=== PATIENT | female | born 1965 | race Two or more races ===

== ENCOUNTER 2020-10-09 14:39 | Outpatient (REF) | payer OTHER, SELFPAY ==
[2020-10-09 15:24] LABS: COVID-19 Test Negative (Negative)
== END 2020-10-09 14:40 | disposition home or self-care (01) ==
LOC: HO.EMPCOV 14:39
PROVIDERS: Visit Provider Internal Medicine
DX: Z20.828 Contact with and (suspected) exposure to other viral communicable diseases (principal)
CPT/HCPCS: 87635; C9803

== ENCOUNTER 2020-10-11 07:15 | Outpatient (REF) | payer OTHER, SELFPAY ==
[2020-10-11 07:40] LABS: COVID-19 Test Positive (Negative)
[2020-10-11 11:01] LABS: IDNOW Serial# 9DD0AD1C
== END 2020-10-11 07:16 | disposition home or self-care (01) ==
LOC: HO.EMPCOV 07:15
PROVIDERS: Visit Provider Internal Medicine
DX: Z20.828 Contact with and (suspected) exposure to other viral communicable diseases (principal)
CPT/HCPCS: 87635

== ENCOUNTER 2020-10-23 16:24 | Emergency (ER) | payer OTHER, SELFPAY ==
[2020-10-23 16:29] VITALS: BP 137/72; PULSE 83; RESP 18; TEMP 37.4; O2SAT 99; BMI 39.7
--- NOTE | 2020-10-23 16:49 | XR_ITS ---
EXAMINATION: XR CHEST CLINICAL INFORMATION: Weakness COMPARISON: 02/05/2020 TECHNIQUE: Frontal view of the chest was obtained. FINDINGS: Lung volumes are further decreased from the prior study. Again seen are diffuse coarse interstitial opacities. There are some areas that are increasingly confluent although its unclear if this is simply due to to the decreased lung volumes. The dens is most notable in the right upper lobe. No pleural effusion or pneumothorax. Normal heart size. No acute osseous abnormality. XR/XR chest 1V IMPRESSION: Lung volumes are further decreased from the prior study. Again seen are diffuse coarse interstitial opacities with some increasingly confluent areas of opacity particularly in the right upper lobe. Developing infection is possible.
--- NOTE | 2020-10-23 16:49 | ECG_ITS ---
Test Reason : NAUSEA VOMITING Blood Pressure : / mmHG Vent. Rate : 065 BPM Atrial Rate : 065 BPM P-R Int : 158 ms QRS Dur : 080 ms QT Int : 432 ms P-R-T Axes : 043 001 018 degrees QTc Int : 449 ms Normal sinus rhythm Normal ECG No previous ECGs available Referred By: Ember Coy Electronically Signed By:JODI HANCOCK
--- NOTE | 2020-10-23 16:54 | ED.NAVMDI ---
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 MD elicited complaint: nausea, vomiting and diarrhea Pertinent past history: other (+COVID) Onset (ago): week(s) (10 days) Description of vomiting: watery Description of diarrhea: watery Associated nausea: Yes Associated abdominal pain: No Location of pain: none Severity: severe Exacerbating factors: none Relieving factors: none Context: other (+ COVID ) Associated symptoms: loss of appetite, malaise and nausea/vomiting Related Data Previous Rx's Medication Instructions Recorded hydrocodone-homatropine 5 ml PO Q6H PRN #60 ml 10/23/20 metoclopramide HCl [Reglan] 10 mg PO Q6H PRN #30 tab 10/23/20 promethazine 25 mg LA Q6H PRN #12 ea 10/23/20 Allergies Allergy/AdvReac Type Severity Reaction Status Date / Time No Known Allergies Allergy Verified 10/23/20 16:37 Review of Systems Review of Systems: Constitutional : pos Weight loss, No Fever, No Chills ENT/Mouth : No sore throat, No Rhinorrhea Eyes: No Swelling, No Redness Cardiovascular : No Chest Pain, No SOB, NoEdema Respiratory : No Cough, No Sputum, No Wheezing Gastrointestinal : Positive Nausea, Positive Vomiting, positive Diarrhea, no abdominal Pain, No Hematochezia, No Melena Genitourinary : No Dysuria, No Urinary Frequency, No Hematuria, No Urgency Musculoskeletal : No joint pain, No Myalgias, No Joint Swelling Skin : No Skin Lesions, No rash Neuro : pos Weakness, No Numbness, No Dizziness, No Headache Psych : No Anxiety/Panic, No Depression Heme/Lymph: No Bruising, No Lymphadenopathy Endocrine : No Polyuria, No Polydipsia All other systems reviewed and are negative. Gastrointestinal: Gastrointestinal: Reports nausea PMFSH Past Medical History Attestation statement: The following information was validated with the patient. Medical History Herpes Surgical History Previous back surgery Social History Social History (Updated 10/23/20 @ 16:58 by Ember Coy DO) Alcohol intake: never Smoking Status: Never smoker Use of substances other than those prescribed or required for medical reasons: No Advance Directives: No Advance Directives Information Provided: No Physical Exam Vital Signs: Vital Signs: Last Vital Signs Temp 98.8 F 10/23/20 17:54 Pulse 68 10/23/20 17:54 Resp 14 10/23/20 17:54 BP 119/59 L 10/23/20 17:54 Pulse Ox 100 10/23/20 17:54 Body Mass Index 39.7 Appearance: Alert. Oriented X3. No acute distress. Eyes: Pupils equal, round and reactive to light. ENT: Pharynx dry MM Neck: Normal inspection. Neck supple. CVS: Normal heart rate and rhythm. Pulses normal. Respiratory: No respiratory distress. Breath sounds normal. Abdomen: Soft and non-tender. Skin: Skin warm and dry. Normal skin color. Normal skin turgor. Extremities: No lower extremity edema. No calf ttp Neuro: Oriented X 3. No motor deficit. No sensory deficit. Diffuse weakness Course Course Course Narrative: patient feels better and wants to go home, able to keep down liquids MDM - Nausea/Vomiting/Diarrhea MDM Narrative Medical decision making narrative: 55 yo female with dx of COVID on 10/11 here with n/v/d feels weak and dehydrated will need labs, CXR, COVID labs, EKG, IVF 1L over 2 hours, nausea medications, dispo per results and findings will need PO challenge Lab Data Result diagrams: 10/23/20 17:10 10/23/20 17:10 Labs: Lab Results 10/23/20 10/23/20 10/23/20 Range/Units 17:10 17:10 17:10 WBC 6.8 (4.8-10.8) X10*3/uL RBC 4.33 (4.20-5.50) X10*6/uL Hgb 13.2 (12.0-16.0) g/dl Hct 39.6 (37-47) % MCV 91.5 (80-98) fL MCH 30.5 (27.0-33.0) pg MCHC 33.3 (31.0-35.0) g/dl RDW 12.2 (11.0-16.0) % Plt Count 299 (160-400) X10*3/uL MPV 9.0 L (9.4-12.3) fL Immature Gran % (Auto) 0.3 (0.0-0.4) % Neut % (Auto) 60.4 (45-73) % Lymph % (Auto) 27.7 (20-40) % [place] % (Auto) 10.3 (2-11) % Eos % (Auto) 1.2 (0-4) % Baso % (Auto) 0.1 (0-2) % Lymph # (Auto) 1.9 (1.2-4.9) X10*3/uL [place] # (Auto) 0.7 (0.1-1.2) X10*3/uL Eos # (Auto) 0.1 (0.0-0.4) X10*3/uL Baso # (Auto) 0.0 (0.0-0.2) X10*3/uL Abs Immat Gran (auto) 0.02 (0.00-0.03) X10*3/uL Absolute Neuts (auto) 4.1 (2.0-8.3) X10*3/uL Absolute Nucleated RBC 0.000 (0.0-0.012) X10*3/uL Nucleated RBC % (auto) 0.0 (0.0-0.2) /100WBC VBG pH (7.32-7.43) VBG pCO2 mmhg VBG pO2 mmhg VBG HCO3 mmol/L VBG O2 Saturation % VBG Base Excess mmol/L Sodium 140 (135-145) mmol/L Potassium 3.6 (3.3-5.1) mmol/l Chloride 105 (96-108) mmol/L Carbon Dioxide 27 (22-29) mmol/L Anion Gap 12 (12-20) BUN 10 (9-16) mg/dL Creatinine 0.73 (0.5-1.4) mg/dL Estim Creat Clear Calc 131.0 Estimated GFR > 60 Random Glucose 123 H (60-115) mg/dL Lactic Acid 0.9 (0.5-2.0) mmol/L Calcium 8.2 L (8.4-10.2) mg/dL Magnesium 2.0 (1.6-2.6) mg/dL Ferritin 242 (10-250) ng/mL Total Bilirubin 0.5 (0.0-1.0) mg/dL Direct Bilirubin 0.2 (0.0-0.5) mg/dL AST 21 (5-31) U/L ALT 27 (0-31) U/L Alkaline Phosphatase 81 (39-117) U/L Lactate Dehydrogenase 255 H (122-220) U/L Total Creatine Kinase 82 (26-140) U/L Total Protein 6.4 L (6.5-8.0) g/dL Albumin 3.8 (3.5-5.0) g/dL 10/23/20 Range/Units 17:29 WBC (4.8-10.8) X10*3/uL RBC (4.20-5.50) X10*6/uL Hgb (12.0-16.0) g/dl Hct (37-47) % MCV (80-98) fL MCH (27.0-33.0) pg MCHC (31.0-35.0) g/dl RDW (11.0-16.0) % Plt Count (160-400) X10*3/uL MPV (9.4-12.3) fL Immature Gran % (Auto) (0.0-0.4) % Neut % (Auto) (45-73) % Lymph % (Auto) (20-40) % [place] % (Auto) (2-11) % Eos % (Auto) (0-4) % Baso % (Auto) (0-2) % Lymph # (Auto) (1.2-4.9) X10*3/uL [place] # (Auto) (0.1-1.2) X10*3/uL Eos # (Auto) (0.0-0.4) X10*3/uL Baso # (Auto) (0.0-0.2) X10*3/uL Abs Immat Gran (auto) (0.00-0.03) X10*3/uL Absolute Neuts (auto) (2.0-8.3) X10*3/uL Absolute Nucleated RBC (0.0-0.012) X10*3/uL Nucleated RBC % (auto) (0.0-0.2) /100WBC VBG pH 7.36 (7.32-7.43) VBG pCO2 48 mmhg VBG pO2 34 mmhg VBG HCO3 26 mmol/L VBG O2 Saturation 67.8 % VBG Base Excess 0.0 mmol/L Sodium (135-145) mmol/L Potassium (3.3-5.1) mmol/l Chloride (96-108) mmol/L Carbon Dioxide (22-29) mmol/L Anion Gap (12-20) BUN (9-16) mg/dL Creatinine (0.5-1.4) mg/dL Estim Creat Clear Calc Estimated GFR Random Glucose (60-115) mg/dL Lactic Acid (0.5-2.0) mmol/L Calcium (8.4-10.2) mg/dL Magnesium (1.6-2.6) mg/dL Ferritin (10-250) ng/mL Total Bilirubin (0.0-1.0) mg/dL Direct Bilirubin (0.0-0.5) mg/dL AST (5-31) U/L ALT (0-31) U/L Alkaline Phosphatase (39-117) U/L Lactate Dehydrogenase (122-220) U/L Total Creatine Kinase (26-140) U/L Total Protein (6.5-8.0) g/dL Albumin (3.5-5.0) g/dL ECG Data Attestation: I personally reviewed and interpreted this ECG as follows: ECG interpretation date: 10/23/20 ECG interpretation time: 18:03 Interpretation: Rate: 65 Rhythm: NSR [place]: normal Normal P waves. Normal TYLER. Normal QRS complex. ST T wave : no HIEN, normal qTC: normal prior studies: no acute ischemia The study has been interpreted contemporaneously by me. . Discharge Plan Discharge Clinical Impression: Pneumonia due to 2019-nCoV Vomiting Qualifiers: Vomiting type: unspecified Vomiting Intractability: non-intractable Nausea presence: with nausea Qualified Code(s): R11.2 - Nausea with vomiting, unspecified Patient Disposition: Home, Self-Care Instructions: Acute Nausea and Vomiting (ED), COVID-19 (Coronavirus Disease 2019) (ED) Additional Instructions: return to ED for any worsening symptoms or concerns Prescriptions: New metoclopramide HCl [Reglan] 10 mg tablet 10 mg PO Q6H PRN (Reason: nausea and vomiting) Qty: 30 RF: 0 promethazine 25 mg suppository 25 mg LA Q6H PRN (Reason: nausea and vomiting) Qty: 12 RF: 0 hydrocodone-homatropine 5-1.5 mg/5 mL (5 mL) syrup 5 ml PO Q6H PRN (Reason: cough) Qty: 60 RF: 0 Stand Alone Forms: Work/School Release
[2020-10-23 17:19] LABS: Basophils Percent Auto 0.1 % (0-2); Eosinophils Absolute Auto 0.1 X10*3/uL (0.0-0.4); Eosinophils Percent Auto 1.2 % (0-4); Hematocrit 39.6 % (37-47); Hemoglobin 13.2 g/dl (12.0-16.0); Imm Gran Abs Auto 0.02 X10*3/uL (0.00-0.03); Imm Gran Pct Auto 0.3 % (0.0-0.4); Lymphocytes Absolute Auto 1.9 X10*3/uL (1.2-4.9); Lymphocytes Percent Auto 27.7 % (20-40); Mean Corpuscular HGB Conc 33.3 g/dl (31.0-35.0); Mean Corpuscular Hemoglobin 30.5 pg (27.0-33.0); Mean Corpuscular Volume 91.5 fL (80-98); Monocytes Absolute Auto 0.7 X10*3/uL (0.1-1.2); Monocytes Percent Auto 10.3 % (2-11); Neutrophils Absolute Auto 4.1 X10*3/uL (2.0-8.3); Neutrophils Percent Auto 60.4 % (45-73); Platelet Count 299 X10*3/uL (160-400); Red Blood Count 4.33 X10*6/uL (4.20-5.50); Red Cell Distribution Width 12.2 % (11.0-16.0); White Blood Count 6.8 X10*3/uL (4.8-10.8)
[2020-10-23 17:20] LABS: MANUAL DIFF FLAG NO
[2020-10-23] MEDS: Famotidine/PF 20 MG/2 ML VIAL IVPUSH (17:23)
[2020-10-23] MEDS: diphenhydrAMINE HCL 50 MG/ML VIAL 25 MG IVPUSH (17:23)
[2020-10-23] MEDS: 0.9 % Sodium Chloride 1,000 ML 999 ML IVCONT (17:23)
[2020-10-23] MEDS: Metoclopramide HCl 10 MG/2 ML VIAL IVPUSH (17:23)
[2020-10-23 17:38] LABS: PCO2 VBG 48 mmhg; pH VBG 7.36 (7.32-7.43)
[2020-10-23 17:38] LABS: Lactic Acid 0.9 mmol/L (0.5-2.0)
[2020-10-23 17:39] LABS: HCO3 VBG 26 mmol/L; Oxygen Saturation VBG 67.8 %; PO2 VBG 34 mmhg
[2020-10-23 17:44] LABS: Alanine Aminotransferase 27 U/L (0-31); Albumin Level 3.8 g/dL (3.5-5.0); Alkaline Phosphatase 81 U/L (39-117); Anion Gap 12 (12-20); Aspartate Amino Transferase 21 U/L (5-31); Bilirubin Direct 0.2 mg/dL (0.0-0.5); Bilirubin Total 0.5 mg/dL (0.0-1.0); Blood Urea Nitrogen 10 mg/dL (9-16); Calcium 8.2 mg/dL (8.4-10.2); Carbon Dioxide 27 mmol/L (22-29); Chloride 105 mmol/L (96-108); Estimated Glomerular Filt Rate > 60; Glucose Random 123 mg/dL (60-115); Lactate Dehydrogenase 255 U/L (122-220); Potassium 3.6 mmol/l (3.3-5.1); Sodium 140 mmol/L (135-145); Total Protein 6.4 g/dL (6.5-8.0)
[2020-10-23] MEDS: HYDROcodone/Homat 5/1.5/5 ML 5 ML SYRUP PO (17:48)
[2020-10-23 17:54] VITALS: BP 119/59; PULSE 68; RESP 14; TEMP 37.1; O2SAT 100
[2020-10-23 18:03] LABS: Ferritin 242 ng/mL (10-250)
== END 2020-10-23 19:32 | disposition home or self-care (01) ==
PROVIDERS: Emergency Provider Emergency Medicine; PCP Nurse Practitioner Family
DX: U07.1 COVID-19 (principal); J16.8 Pneumonia due to other specified infectious organisms; R11.2 Nausea with vomiting, unspecified
CPT/HCPCS: 36415; 71045; 80048; 80076; 82550; 82728; 82803; 83605; 83615; 83735; 85025; 87040; 93005; 96361; 96374; 96375; 99284; J1200; J2765

== ENCOUNTER 2020-10-27 17:56 | Inpatient (IN) | payer OTHER, SELFPAY ==
[2020-10-27 18:08] VITALS: BP 140/84; PULSE 77; RESP 20; TEMP 37.4; O2SAT 95; BMI 39.0
--- NOTE | 2020-10-27 18:33 | ECG_ITS ---
Test Reason : N V Blood Pressure : / mmHG Vent. Rate : 070 BPM Atrial Rate : 070 BPM P-R Int : 154 ms QRS Dur : 082 ms QT Int : 424 ms P-R-T Axes : 052 005 021 degrees QTc Int : 457 ms Normal sinus rhythm Normal ECG When compared with ECG of 23-OCT-2020 17:55, No significant change was found Referred By: Ira Francois Electronically Signed By:Sal Mckinney
--- NOTE | 2020-10-27 18:33 | US_ITS ---
EXAMINATION: US VENOUS WITH DOPPLER LOWER EXTREMITY, BILATERAL CLINICAL INFORMATION: Left lower extremity pain. COMPARISON: None TECHNIQUE: Ultrasound of the deep veins is performed from the hip to the calf with compression sonography and color and pulse Doppler assessment. Spectral analysis with color-flow imaging is performed. FINDINGS: RIGHT: There is normal venous compression and respiratory variation and augmented flow. The visualized common femoral vein, superficial femoral vein, profunda femoral vein, popliteal vein, and the trifurcation region shows no evidence of deep venous thrombosis. There is no significant popliteal fossa cyst. LEFT: There is noncompressible thrombus present in the posterior tibial veins. The peroneal veins are not optimally compressible. Otherwise, there is normal venous compression and respiratory variation and augmented flow throughout the remainder of the left lower extremity. The visualized common femoral vein, superficial femoral vein, profunda femoral vein and popliteal vein show no evidence of deep venous thrombosis. There is no significant popliteal fossa cyst. US/US venous duplex LE BI IMPRESSION: Acute DVT involving the tibial veins in the left calf as described above. This critical result was discussed with JOSE Hays at 9:00 PM on the evening of the exam and it was ascertained that the content and urgency of the report was understood at the time of direct communication.
--- NOTE | 2020-10-27 18:33 | CT_ITS ---
EXAMINATION: CT ANGIOGRAM CHEST WITH AND WITHOUT CONTRAST (CT PULMONARY ANGIOGRAM FOR PE) CLINICAL INFORMATION: Shortness of breath, extremity swelling, COVID+. COMPARISON: None TECHNIQUE: Prior to contrast administration, noncontrast localization images were obtained. Subsequently, multidetector volumetric imaging was performed from the thoracic inlet to below the diaphragms following the administration of 65 mL Omnipaque 350 intravenous contrast. No contrast reaction reported. Sagittal, coronal, and MIP oblique sagittal reformatted images were obtained on the CT workstation, uploaded to PACS, and reviewed. This CT examination was performed using dose optimization techniques as appropriate, variously including the following: *Automated exposure control. *Adjustment of mA and/or kV according to patient size (this includes techniques or standardized protocols for targeted exams where dose is matched to indication/reason for exam; i.e. extremities or head). *Use of iterative reconstruction technique. Total exam dose-length product 401 mGy-cm. FINDINGS: QUALITY OF STUDY/CONTRAST BOLUS: Satisfactory. PULMONARY ARTERIES: Bilateral pulmonary emboli are seen involving the right upper lobe, right lower lobe, left lower lobe and left upper lobe. THORACIC AORTA: No aneurysm or dissection. LUNG: Diffuse peripheral ground-glass infiltrates are seen characteristic of COVID pulmonary disease. PLEURA: No pleural effusion or pneumothorax. MEDIASTINUM: Normal heart size. No pericardial effusion. No hilar or mediastinal lymphadenopathy. No evidence of septal bowing or right heart strain. CHEST WALL/AXILLA: No axillary or internal mammary lymphadenopathy. OSSEOUS STRUCTURES: No acute or suspicious osseous abnormality. UPPER ABDOMEN: Unremarkable. No reflux of contrast into the hepatic veins to suggest elevated right heart pressures. CT/CT angio chest PE protocol IMPRESSION: Acute bilateral pulmonary emboli. No evidence of right heart strain. VTE: Positive. This critical result was discussed with JOSE Hays at 9:06 PM on the evening of the exam and it was ascertained that the content and urgency of the report was understood at the time of direct communication.
[2020-10-27 18:57] LABS: Basophils Percent Auto 0.2 % (0-2); Eosinophils Absolute Auto 0.1 X10*3/uL (0.0-0.4); Eosinophils Percent Auto 1.1 % (0-4); Hemoglobin 12.6 g/dl (12.0-16.0); Imm Gran Abs Auto 0.04 X10*3/uL (0.00-0.03); Imm Gran Pct Auto 0.4 % (0.0-0.4); Lymphocytes Percent Auto 20.6 % (20-40); MANUAL DIFF FLAG NO; Mean Corpuscular HGB Conc 34.1 g/dl (31.0-35.0); Mean Corpuscular Hemoglobin 30.7 pg (27.0-33.0); Mean Platelet Volume 9.5 fL (9.4-12.3); Neutrophils Absolute Auto 6.4 X10*3/uL (2.0-8.3); Neutrophils Percent Auto 67.7 % (45-73); Platelet Count 320 X10*3/uL (160-400); Red Blood Count 4.11 X10*6/uL (4.20-5.50); White Blood Count 9.5 X10*3/uL (4.8-10.8)
[2020-10-27] MEDS: 0.9 % Sodium Chloride 1,000 ML 999 ML IVCONT (18:57)
[2020-10-27] MEDS: dexAMETHasone sod phosphate 4 MG/ML VIAL 6 MG IVPUSH (18:58)
[2020-10-27] MEDS: ondansetron HCL 4 MG/2 ML VIAL IVPUSH (18:58)
[2020-10-27 19:15] LABS: INTERNATIONAL NORM RATIO 1.3 (0.9-1.1); Prothrombin Time 15.4 SEC (10.8-13.0)
[2020-10-27 19:18] LABS: Partial Thromboplastin Time 29.8 SEC (24.1-38.0)
[2020-10-27 19:34] LABS: Lactic Acid 0.8 mmol/L (0.5-2.0)
[2020-10-27 19:38] LABS: Alanine Aminotransferase 23 U/L (0-31); Albumin Level 3.5 g/dL (3.5-5.0); Alkaline Phosphatase 78 U/L (39-117); Anion Gap 16 (12-20); Aspartate Amino Transferase 20 U/L (5-31); Bilirubin Direct 0.3 mg/dL (0.0-0.5); Bilirubin Total 0.7 mg/dL (0.0-1.0); Blood Urea Nitrogen 9 mg/dL (9-16); Calcium 8.2 mg/dL (8.4-10.2); Carbon Dioxide 26 mmol/L (22-29); Chloride 101 mmol/L (96-108); Creatinine Clr Calc Pharmacy 143.5; Estimated Glomerular Filt Rate > 60; Glucose Random 118 mg/dL (60-115); Lipase 25 U/L (8-78); Magnesium 2.1 mg/dL (1.6-2.6); Potassium 3.5 mmol/l (3.3-5.1); Sodium 139 mmol/L (135-145); Total Protein 6.4 g/dL (6.5-8.0)
--- NOTE | 2020-10-27 19:42 | ED_ITS ---
HPI - General Adult General Chief complaint: Extremity Problem Stated complaint: covid positive cough pain Time Seen by Provider: 10/27/20 18:08 Source: patient Mode of arrival: ambulatory Limitations: no limitations History of Present Illness HPI narrative: 55-year-old female with known COVID positive test results on October 23 presents with left lower extremity swelling and shortness of breath. She states that she has been very tired over the past few days. She noted that her leg was swelling over the past day and half. She has had a poor appetite and poor p.o. intake over the past 4 days. She does not describe any chest pain or pressure, palpitations, abdominal pain, abdominal distention, dysuria, and hematuria Related Data Home Medications Medication Instructions Recorded Confirmed nitrofurantoin macrocrystal 1 cap PO BID 10/28/20 10/28/20 valacyclovir 0.5 tab PO DAILY 10/28/20 10/28/20 Allergies Allergy/AdvReac Type Severity Reaction Status Date / Time No Known Allergies Allergy Verified 10/23/20 16:37 Review of Systems Review of Systems: Constitutional: positive Fever, positive Chills, positive fatigue, positive Malaise ENT/Mouth: No sore throat, no runny nose Eyes: No Discharge Cardiovascular: No Chest Pain, positive SOB Respiratory: No Cough, No Sputum, No Wheezing, No Smoke Exposure, positive Dyspnea on minimal exertion Gastrointestinal: No Nausea, No Vomiting, No Diarrhea Genitourinary: no irregular bleeding, No Dysuria, No Urinary Frequency, No Hematuria, No Urinary Incontinence, No Urgency, No Flank Pain, Musculoskeletal: positive Myalgia Skin: No rash Neuro: No Headache Yes all other systems are reviewed and are negative [facility] Past Medical History Attestation statement: The following information was validated with the patient. Source: old records reviewed Medical History Herpes Surgical History Previous back surgery Social History Social History Alcohol intake: never Smoking Status: Never smoker Use of substances other than those prescribed or required for medical reasons: No Advance Directives: No Advance Directives Information Provided: Yes Physical Exam Vital Signs: Vital Signs: Last Vital Signs Temp 99.5 F 10/27/20 20:48 Pulse 66 10/28/20 02:00 Resp 18 10/28/20 02:00 BP 125/59 L 10/28/20 00:00 Pulse Ox 95 10/28/20 00:00 Body Mass Index 39.0 Appearance: Alert. Oriented X3. Moderate respiratory distress RR 22, hypoxic on room air at 89% at rest.. Eyes: Pupils equal, round and reactive to light. ENT: Pharynx normal. Neck: Normal inspection. Neck supple. CVS: Normal heart rate and rhythm. Pulses normal. Respiratory: No respiratory distress. Breath sounds diminished with expiratory and inspiratory wheezing. Abdomen: Soft and nontender. Skin: Skin warm and dry. Normal skin color. Normal skin turgor. Extremities: Left lower extremity swollen, bilateral pedal and tibial pulses equal, brisk capillary refill equal to both extremities. Neuro: No motor deficit. No sensory deficit. Course Course Course Narrative: 55-year-old female with known COVID positive test result presents with left lower extremity swelling, shortness of breath, and malaise. Plan of care is for CBC, Chem 7, lactic acid, cultures, bilateral venous duplex and PE protocol. Patient respiration rate is elevated, patient is hypoxic on room air although patient is not tachycardic. Because of the suspected DVT, PE protocol indicated. [facility] contacted this [facility] at 9:00 p.m. to update that patient has bilateral PE in all lobes of her lungs, without any right heart strain. Patient does have positive DVT to left lower extremity. Discussion with patient regarding plan of care, we will initiate Lovenox 1 milligram/kilogram, patient will be admitted per hospitalist for hypoxia, PE and DVT. Patient requests that I speak to her daughter who is an ER nurse, detailed description of findings and plan of care given to her daughter at 9:20 p.m. Consultations Consultation #1: [place] Time: 21:20 Medical Decision Making Differential Diagnosis Differential Diagnosis: DVT, PE, viral pneumonia, bacterial pneumonia, NC Medical Records Medical records reviewed: Yes I reviewed the patient's medical records. Lab Data Lab results reviewed: Yes I reviewed the patient's lab results. Result diagrams: 10/27/20 18:47 10/27/20 18:47 Labs: Lab Results 10/27/20 10/27/20 10/27/20 Range/Units 18:47 18:47 18:47 WBC 9.5 (4.8-10.8) X10*3/uL RBC 4.11 L (4.20-5.50) X10*6/uL Hgb 12.6 (12.0-16.0) g/dl Hct 37.0 (37-47) % MCV 90.0 (80-98) fL MCH 30.7 (27.0-33.0) pg MCHC 34.1 (31.0-35.0) g/dl RDW 12.0 (11.0-16.0) % Plt Count 320 (160-400) X10*3/uL MPV 9.5 (9.4-12.3) fL Immature Gran % (Auto) 0.4 (0.0-0.4) % Neut % (Auto) 67.7 (45-73) % Lymph % (Auto) 20.6 (20-40) % [place] % (Auto) 10.0 (2-11) % Eos % (Auto) 1.1 (0-4) % Baso % (Auto) 0.2 (0-2) % Lymph # (Auto) 2.0 (1.2-4.9) X10*3/uL [place] # (Auto) 1.0 (0.1-1.2) X10*3/uL Eos # (Auto) 0.1 (0.0-0.4) X10*3/uL Baso # (Auto) 0.0 (0.0-0.2) X10*3/uL Abs Immat Gran (auto) 0.04 H (0.00-0.03) X10*3/uL Absolute Neuts (auto) 6.4 (2.0-8.3) X10*3/uL Absolute Nucleated RBC 0.000 (0.0-0.012) X10*3/uL Nucleated RBC % (auto) 0.0 (0.0-0.2) /100WBC PT 15.4 H (10.8-13.0) SEC INR 1.3 H (0.9-1.1) APTT 29.8 (24.1-38.0) SEC Sodium 139 (135-145) mmol/L Potassium 3.5 (3.3-5.1) mmol/l Chloride 101 (96-108) mmol/L Carbon Dioxide 26 (22-29) mmol/L Anion Gap 16 (12-20) BUN 9 (9-16) mg/dL Creatinine 0.66 (0.5-1.4) mg/dL Estim Creat Clear Calc 143.5 Estimated GFR > 60 Random Glucose 118 H (60-115) mg/dL Lactic Acid (0.5-2.0) mmol/L Calcium 8.2 L (8.4-10.2) mg/dL Magnesium 2.1 (1.6-2.6) mg/dL Total Bilirubin 0.7 (0.0-1.0) mg/dL Direct Bilirubin 0.3 (0.0-0.5) mg/dL AST 20 (5-31) U/L ALT 23 (0-31) U/L Alkaline Phosphatase 78 (39-117) U/L Troponin I High Sens (<3.5-17.0) ng/L Total Protein 6.4 L (6.5-8.0) g/dL Albumin 3.5 (3.5-5.0) g/dL Lipase 25 (8-78) U/L COVID-19 ([facility]) (Negative) COVID-19 Clin Com 10/27/20 10/27/20 10/27/20 Range/Units 18:47 18:47 22:34 WBC (4.8-10.8) X10*3/uL RBC (4.20-5.50) X10*6/uL Hgb (12.0-16.0) g/dl Hct (37-47) % MCV (80-98) fL MCH (27.0-33.0) pg MCHC (31.0-35.0) g/dl RDW (11.0-16.0) % Plt Count (160-400) X10*3/uL MPV (9.4-12.3) fL Immature Gran % (Auto) (0.0-0.4) % Neut % (Auto) (45-73) % Lymph % (Auto) (20-40) % [place] % (Auto) (2-11) % Eos % (Auto) (0-4) % Baso % (Auto) (0-2) % Lymph # (Auto) (1.2-4.9) X10*3/uL [place] # (Auto) (0.1-1.2) X10*3/uL Eos # (Auto) (0.0-0.4) X10*3/uL Baso # (Auto) (0.0-0.2) X10*3/uL Abs Immat Gran (auto) (0.00-0.03) X10*3/uL Absolute Neuts (auto) (2.0-8.3) X10*3/uL Absolute Nucleated RBC (0.0-0.012) X10*3/uL Nucleated RBC % (auto) (0.0-0.2) /100WBC PT (10.8-13.0) SEC INR (0.9-1.1) APTT (24.1-38.0) SEC Sodium (135-145) mmol/L Potassium (3.3-5.1) mmol/l Chloride (96-108) mmol/L Carbon Dioxide (22-29) mmol/L Anion Gap (12-20) BUN (9-16) mg/dL Creatinine (0.5-1.4) mg/dL Estim Creat Clear Calc Estimated GFR Random Glucose (60-115) mg/dL Lactic Acid 0.8 (0.5-2.0) mmol/L Calcium (8.4-10.2) mg/dL Magnesium (1.6-2.6) mg/dL Total Bilirubin (0.0-1.0) mg/dL Direct Bilirubin (0.0-0.5) mg/dL AST (5-31) U/L ALT (0-31) U/L Alkaline Phosphatase (39-117) U/L Troponin I High Sens 13.1 (<3.5-17.0) ng/L Total Protein (6.5-8.0) g/dL Albumin (3.5-5.0) g/dL Lipase (8-78) U/L COVID-19 ([facility]) Negative (Negative) COVID-19 Clin Com See Note Imaging Data CT scan - chest: Attestation: I personally reviewed and interpreted this imaging study as follows: Radiologist's impression: EXAMINATION: CT ANGIOGRAM CHEST WITH AND WITHOUT CONTRAST (CT PULMONARY ANGIOGRAM FOR PE) CLINICAL INFORMATION: Shortness of breath, extremity swelling, COVID+. COMPARISON: None TECHNIQUE: Prior to contrast administration, noncontrast localization images were obtained. Subsequently, multidetector volumetric imaging was performed from the thoracic inlet to below the diaphragms following the administration of 65 mL Omnipaque 350 intravenous contrast. No contrast reaction reported. Sagittal, coronal, and MIP oblique sagittal reformatted images were obtained on the CT workstation, uploaded to PACS, and reviewed. This CT examination was performed using dose optimization techniques as appropriate, variously including the following: *Automated exposure control. *Adjustment of mA and/or kV according to patient size (this includes techniques or standardized protocols for targeted exams where dose is matched to indication/reason for exam; i.e. extremities or head). *Use of iterative reconstruction technique. Total exam dose-length product 401 mGy-cm. FINDINGS: QUALITY OF STUDY/CONTRAST BOLUS: Satisfactory. PULMONARY ARTERIES: Bilateral pulmonary emboli are seen involving the right upper lobe, right lower lobe, left lower lobe and left upper lobe. THORACIC AORTA: No aneurysm or dissection. LUNG: Diffuse peripheral ground-glass infiltrates are seen characteristic of COVID pulmonary disease. PLEURA: No pleural effusion or pneumothorax. MEDIASTINUM: Normal heart size. No pericardial effusion. No hilar or mediastinal lymphadenopathy. No evidence of septal bowing or right heart strain. CHEST WALL/AXILLA: No axillary or internal mammary lymphadenopathy. OSSEOUS STRUCTURES: No acute or suspicious osseous abnormality. UPPER ABDOMEN: Unremarkable. No reflux of contrast into the hepatic veins to suggest elevated right heart pressures. CT/CT angio chest PE protocol IMPRESSION: Acute bilateral pulmonary emboli. No evidence of right heart strain. VTE: Positive. This critical result was discussed with JOSE Hays at 9:06 PM on the evening of the exam and it was ascertained that the content and urgency of the report was understood at the time of direct communication. Venous US: Attestation: I personally reviewed and interpreted this imaging study as follows: Radiologist's impression: EXAMINATION: US VENOUS WITH DOPPLER LOWER EXTREMITY, BILATERAL CLINICAL INFORMATION: Left lower extremity pain. COMPARISON: None TECHNIQUE: Ultrasound of the deep veins is performed from the hip to the calf with compression sonography and color and pulse Doppler assessment. Spectral analysis with color-flow imaging is performed. FINDINGS: RIGHT: There is normal venous compression and respiratory variation and augmented flow. The visualized common femoral vein, superficial femoral vein, profunda femoral vein, popliteal vein, and the trifurcation region shows no evidence of deep venous thrombosis. There is no significant popliteal fossa cyst. LEFT: There is noncompressible thrombus present in the posterior tibial veins. The peroneal veins are not optimally compressible. Otherwise, there is normal venous compression and respiratory variation and augmented flow throughout the remainder of the left lower extremity. The visualized common femoral vein, superficial femoral vein, profunda femoral vein and popliteal vein show no evidence of deep venous thrombosis. There is no significant popliteal fossa cyst. US/US venous duplex LE BI IMPRESSION: Acute DVT involving the tibial veins in the left calf as described above. This critical result was discussed with JOSE Hays at 9:00 PM on the evening of the exam and it was ascertained that the content and urgency of the report was understood at the time of direct communication. ECG Data Attestation: I personally reviewed and interpreted this ECG as follows: Interpretation: Vent. Rate : 070 BPM Atrial Rate : 070 BPM P-R Int : 154 ms QRS Dur : 082 ms QT Int : 424 ms P-R-T Axes : 052 005 021 degrees QTc Int : 457 ms Normal sinus rhythm Normal ECG When compared with ECG of 23-OCT-2020 17:55, No significant change was found Date 10/27/2020, time 6:47 p.m. Critical Care Time Critical Care Time Critical Care Time: Yes Total Critical Care Time: 65 Attestation: I have personally provided critical care time exclusive of time spent on sep arately billable procedures. Time includes review of laboratory data, radiology results, discussion with consultants, and monitoring for potential decompensation. Interventions were performed as documented. Discharge Plan Discharge Clinical Impression: Pneumonia due to 2019-nCoV, Hypoxia Deep vein thrombosis of lower extremity Qualifiers: Affected thrombotic vein of extremity: unspecified vein of extremity Chronicity: acute Laterality: left Qualified Code(s): I82.402 - Acute embolism and thrombosis of unspecified deep veins of left lower extremity Pulmonary embolism Qualifiers: Pulmonary embolism type: multiple subsegmental (without acute cor pulmonale) Qualified Code(s): I26.94 - Multiple subsegmental pulmonary emboli without acute cor pulmonale Patient Disposition: Admitted As Inpatient
[2020-10-27 19:44] LABS: Troponin-I High Sensitivity 13.1 ng/L (<3.5-17.0)
[2020-10-27] MEDS: iohexoL 350 MG/ML 100 ML INFUS..BTL IV (20:42)
[2020-10-27 20:48] VITALS: BP 143/75; PULSE 74; RESP 18; TEMP 37.5; O2SAT 92
[2020-10-27] MEDS: Enoxaparin Sodium 100 MG/ML SYRINGE 125 MG SUBCUT (21:25)
--- NOTE | 2020-10-27 21:25 | PC.NURSE ---
Pt placed on 1L nasal cannula for 92-93% on room air- now 96%
[2020-10-27 22:40] VITALS: BP 142/68; PULSE 75; RESP 16; O2SAT 93
--- NOTE | 2020-10-27 22:44 | P.HPHOSP_ITS ---
History of Present Illness Date of Service: 10/27/20 Chief Complaint: Left lower leg swelling om This is a 55-year-old generally healthy female who presents to the hospital with complaints of left lower leg pain. Patient reports that the pain started 4 days ago, has been worsening, /10, not associated with swelling but felt that her leg was starting to get tight. Patient was diagnosed with COVID-19 on the 11 of October and has been dealing with COVID-19 symptoms including severe nausea and his been mostly bed-bound for the past 4 days due to the severe nausea. Patient reports that with any minimal movement she gets nauseous and therefore she voided moving at all. She also has been having shortness of breath on exertion, coughing, no sputum production, she has been having fever for the past 15 days with the highest being 102.5, no chest pain, no abdominal pain, no diarrhea or constipation. pt had been having dysuria and suprapubic pain that she sella her PCP for and was prescribed Bactrim 2 days ago with the symptoms resolving. She also has had low appetite and oral intake. On arrival to the ED found to have hypoxia satting 88-89% on room air. Currently on 4 L of oxygen satting in the 90s. Labs are significant for WBC of 9.5, hemoglobin of 12.6, hematocrit 37.0, PT of 15.4, INR of 1.3, sodium of 139, potassium 3.5, BUN of 9, creatinine of 0.66, COVID-19 negative, CT angiogram of the chest shows acute bilateral pulmonary emboli with no evidence of right heart strain. Patient also has bilateral infiltrate seen on CT Venous duplex shows acute DVT involving the tibial vein in the left calf Patient will be admitted for further management Past medical history: Denies Past surgical history: 2 back surgeries Family history: Father had an aneurysm at the age of 70, Heart disease and maternal grandparents, Social history: Comes from home, denies tobacco alcohol or illicit drugs Review of Systems Review of Systems: Yes all other systems are reviewed and are negative [facility] Medical History Herpes Surgical History Previous back surgery Social History Alcohol intake: never Smoking Status: Never smoker Use of substances other than those prescribed or required for medical reasons: No Advance Directives: No Advance Directives Information Provided: Yes Meds Allergies Allergy/AdvReac Type Severity Reaction Status Date / Time No Known Allergies Allergy Verified 10/23/20 16:37 Home Medications Medication Instructions Recorded Confirmed Type nitrofurantoin macrocrystal 1 cap PO BID 10/28/20 10/28/20 History valacyclovir 0.5 tab PO DAILY 10/28/20 10/28/20 History Physical Exam Vital Signs and Narrative: Vital Signs: Last Vital Signs Temp 99.5 F 10/27/20 20:48 Pulse 75 10/27/20 22:40 Resp 16 10/27/20 22:40 BP 142/68 H 10/27/20 22:40 Pulse Ox 93 10/27/20 22:40 Body Mass Index 39.0 Const: General: cooperative and no acute distress Orientation/consciousness: patient oriented x3 Eyes: General: appearance normal, both eyes and all related structures Pupils: Equal, round and reactive pupils present Resp: Effort & Inspection: normal respiratory effort and able to speak in complete sentences Cardio: Rate: regular rate Rhythm: regular rhythm GI: Palpation (GI): Soft to palpation Auscultation: normal bowel sounds Skin: General skin exam: no rashes or lesions noted Neuro: General: patient oriented x3 Cranial nerves: Yes Equal, round and reactive pupils present Cognition (Neuro): normal cognition Extrem: Other: Tender on palpation of left lower extremity General: Yes no pedal edema Results Labs CBC and Chem 7: 10/27/20 18:47 10/27/20 18:47 Labs: Laboratory Results - last 24 hr 10/27/20 10/27/20 10/27/20 18:47 18:47 18:47 MCV 90.0 MCH 30.7 MCHC 34.1 RDW 12.0 Plt Count 320 MPV 9.5 Immature Gran % (Auto) 0.4 Neut % (Auto) 67.7 Lymph % (Auto) 20.6 [place] % (Auto) 10.0 Eos % (Auto) 1.1 Baso % (Auto) 0.2 Lymph # (Auto) 2.0 [place] # (Auto) 1.0 Eos # (Auto) 0.1 Baso # (Auto) 0.0 Abs Immat Gran (auto) 0.04 H Absolute Neuts (auto) 6.4 Absolute Nucleated RBC 0.000 Nucleated RBC % (auto) 0.0 PT 15.4 H INR 1.3 H APTT 29.8 Anion Gap 16 Estim Creat Clear Calc 143.5 Estimated GFR > 60 Random Glucose 118 H Lactic Acid Calcium 8.2 L Magnesium 2.1 Total Bilirubin 0.7 Direct Bilirubin 0.3 AST 20 ALT 23 Alkaline Phosphatase 78 Troponin I High Sens Total Protein 6.4 L Albumin 3.5 Lipase 25 10/27/20 10/27/20 18:47 18:47 MCV MCH MCHC RDW Plt Count MPV Immature Gran % (Auto) Neut % (Auto) Lymph % (Auto) [place] % (Auto) Eos % (Auto) Baso % (Auto) Lymph # (Auto) [place] # (Auto) Eos # (Auto) Baso # (Auto) Abs Immat Gran (auto) Absolute Neuts (auto) Absolute Nucleated RBC Nucleated RBC % (auto) PT INR APTT Anion Gap Estim Creat Clear Calc Estimated GFR Random Glucose Lactic Acid 0.8 Calcium Magnesium Total Bilirubin Direct Bilirubin AST ALT Alkaline Phosphatase Troponin I High Sens 13.1 Total Protein Albumin Lipase Imaging Radiologist's Impressions: Impressions Chest CTA 10/27/20 18:33 IMPRESSION: Acute bilateral pulmonary emboli. No evidence of right heart strain. VTE: Positive. This critical result was discussed with JOSE Hays at 9:06 PM on the evening of the exam and it was ascertained that the content and urgency of the report was understood at the time of direct communication. Venous Duplex 10/27/20 18:33 IMPRESSION: Acute DVT involving the tibial veins in the left calf as described above. This critical result was discussed with JOSE Hays at 9:00 PM on the evening of the exam and it was ascertained that the content and urgency of the report was understood at the time of direct communication. 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 - Patient reports that she has been sedentary for the past 4 days due to severe nausea in the setting of COVID-19 Plan: - will start patient on Lovenox 1 milligram/kg b.i.d. - Decadron 6 mg daily - O2 as required - monitor respiratory status # bilateral PE - most likely in the setting of COVID-19 as well as being sedentary - no evidence of right heart strain on CT scan - has DVT of the left lower extremity - has a low PESI score plan: - Lovenox 1 milligram/kg b.i.d. - will obtain BNP for prognostic purposes - echocardiogram # COVID-19 pneumonia - was diagnosed with COVID-19 on the 11 of October - hypoxic which may be complicated by the PE - her PCR COVID-19 rapid test is negative today - will start her on Decadron 6 mg daily - O2 as required - most likely out of the window from the severe and therefore will hold off consulting Infectious Disease at this time DVT prophylaxis: Lovenox
[2020-10-27 23:08] LABS: COVID-19 Test Negative (Negative)
[2020-10-28] VITALS (8 sets, daily range): BP systolic 106–136; BP diastolic 59–80; PULSE 55–80; RESP 18–20; TEMP 36–36.8; O2SAT 95–98; BMI 39.0
[2020-10-28] MEDS: Nitrofurantoin Monohyd/M-Cryst 100 MG CAPSULE PO (05:29)
[2020-10-28 06:27] LABS: B Type Natriuretic Peptide 33 pg/mL (<100)
--- NOTE | 2020-10-28 08:02 | PC.NURSE ---
Addendum entered by Robert Chapman 10/28/20 08:13: TO FLOOR. PT WELL SATURATED ON 2 L/M. ATE SOME TOAST. EPISODES OF COUGHING, BUT OTHERWISE NO DISTRESS. Original Note: REPORT FROM [place] THIS AM. PT RESTING IN NAD WAITING TRANFER TO FLOOR FOR DVT AND PE'S. RM ASSIGNED. WAITING TO GIVE REPORT
--- NOTE | 2020-10-28 08:53 | PC.NURSE ---
TO FLOOR WITH PCT AFTER REPORT
--- NOTE | 2020-10-28 09:11 | CA_ITS ---
Transthoracic Echocardiogram Patient (Last, First, Middle): Cindy Mancuso R Gender: Female Date of : 1965 Age: 55 Procedure Date: 10/28/2020 Procedure Type: Transthoracic Echocardiogram Location: [facility] [place] Height: 180.34 cm Weight: 127.01 kg BSA: 2.43 m2 Heart Rate: bpm BP: 132 / 62 mmHg Peg Driver: Referring MD: Thomas Turk MD Symptoms: PE Study Quality: Fair ECG Rhythm: Sinus Conclusions: - Normal left ventricular size and systolic function. - Diastolic function is normal for age. - Normal right ventricular cavity size and systolic function. - The left atrium is likely dilated. Interatrial shunt cannot be excluded by color Doppler. The right atrium is normal in size. - There is mild dilatation of the ascending aorta. Findings Left Ventricle Normal left ventricular size and systolic function. There is mildly increased left ventricular wall thickness. The visually estimated ejection fraction is between 55-60%. There is no evidence of regional wall motion abnormalities. Diastolic function is normal for age. Right Ventricle Normal right ventricular cavity size and systolic function. Atria The left atrium is likely dilated. Interatrial shunt cannot be excluded by color Doppler. The right atrium is normal in size. Aortic Valve There is a normal trileaflet aortic valve. There is mild thickening of the aortic valve. There is no aortic valve stenosis. There is no aortic valve regurgitation. Mitral Valve Normal mitral valve structure and function. There is no mitral valve regurgitation. There is no mitral valve stenosis. Pulmonic Valve The pulmonic valve is likely normal. There is trace pulmonic valve regurgitation. Tricuspid Valve Normal tricuspid valve structure and function. There is no tricuspid valve regurgitation. Normal right atrial pressure. There is no evidence of pulmonary hypertension. Great Vessels There is mild dilatation of the ascending aorta. The visualized portions of the pulmonary artery and branches are normal. Venous The inferior vena cava is normal in size and collapses greater than 50% with inspiration. Pericardium/Pleural There is no evidence of pericardial effusion. Prior Study Comparison No significant change compared to prior study. Measurements 2D Linear Measurements IVSd: 1.04 0.6-0.9/0.6-1.0 cm LVIDd: 4.93 3.9-5.3/4.2-5.9 cm LVIDd Index: 2.03 2.4-3.2/2.2-3.1 cm/m2 LVIDs: 3.30 2.0-3.6 cm LVPWd: 1.13 0.7-1.1 cm Ao Root: 3.20 2.1-3.5 cm LA Diam: 4.50 2.7-3.8/3.0-4.0 cm LAIDs Index: 1.85 1.5-2.3 cm/m2 LV Mass: 247.61 67-162/88-224 g LV Mass Index: 101.90 43-95/49-115 g/m2 LVOT Diam: 2.30 3.0+(-)1.3 cm Mitral Valve MV Pk E: 0.79 MV PK A: 0.69 MV Decel Time: 225.00 E/A: 1.10 E'Lateral: 14.30 E'Medial: 8.90 E/E' Med: 8.90 E/E' Lat: 5.50 PHT: 66.00 MVA PHT: 3.33 Decel [place]: 3.51 Aortic Valve AoV Pk Ras: 1.59 AoV Mn Ras: 0.91 AoV VTI: 0.35 AoV Pk Grad: 10.00 Aov Mn Grad: 4.00 CHELSEA Cont.VTI: 3.11 LVOT LVOT Pk Ras: 1.10 LVOT Mn Ras: 0.71 LVOT VTI: 0.26 LVOT Pk Grad: 5.00 LVOT Mn Grad: 3.00 LVOT Diam: 2.30 LVOT Area: 4.15 Diastolic Function MV Pk E: 0.79 MV Pk A: 0.69 E/A: 1.10 E'Medial: 8.90 E/E' Med: 8.90 E' Laterial: 14.30 E/E' Lat: 5.50 Tricuspid Valve TR Pk Ras: 2.09 TR Pk Grad: 17.00 RA Press: 3.00 RVSP: 20.00 Great Vessels Aorta Ao Root-2D: 3.20 2.0-3.7 cm Ao Asc: 3.60 2.1-3.4 cm Pulmonary Valve PV Pk Ras: 1.18 Peak PV Grad: 6.00 Updated in Other Vendor System with Status of Final Sal Mckinney MD electronically signed on 10/29/2020 12:27:45 PM with status of Final
[2020-10-28] MEDS: Enoxaparin Sodium 150 MG/ML SYRINGE 125 MG SUBCUT ×2 (09:37→20:15)
[2020-10-28] MEDS: 0.9 % Sodium Chloride Flush 3 ML SYRINGE IVFLUSH ×3 (09:39→23:54)
[2020-10-28 09:45] LABS: Basophils Percent Auto 0.1 % (0-2); Hemoglobin 12.8 g/dl (12.0-16.0); Imm Gran Abs Auto 0.04 X10*3/uL (0.00-0.03); Imm Gran Pct Auto 0.5 % (0.0-0.4); Lymphocytes Absolute Auto 1.5 X10*3/uL (1.2-4.9); Lymphocytes Percent Auto 18.5 % (20-40); MANUAL DIFF FLAG NO; Mean Corpuscular HGB Conc 33.7 g/dl (31.0-35.0); Mean Corpuscular Hemoglobin 30.4 pg (27.0-33.0); Mean Corpuscular Volume 90.3 fL (80-98); Mean Platelet Volume 9.5 fL (9.4-12.3); Monocytes Absolute Auto 0.7 X10*3/uL (0.1-1.2); Monocytes Percent Auto 8.6 % (2-11); Neutrophils Absolute Auto 5.8 X10*3/uL (2.0-8.3); Neutrophils Percent Auto 72.3 % (45-73); Platelet Count 361 X10*3/uL (160-400); Red Blood Count 4.21 X10*6/uL (4.20-5.50); Red Cell Distribution Width 11.9 % (11.0-16.0); White Blood Count 8.1 X10*3/uL (4.8-10.8)
[2020-10-28 09:48] LABS: INTERNATIONAL NORM RATIO 1.2 (0.9-1.1); Prothrombin Time 14.7 SEC (10.8-13.0)
[2020-10-28 09:51] LABS: Partial Thromboplastin Time 30.8 SEC (24.1-38.0)
[2020-10-28 10:32] LABS: Anion Gap 17 (12-20); Blood Urea Nitrogen 11 mg/dL (9-16); Calcium 8.4 mg/dL (8.4-10.2); Carbon Dioxide 24 mmol/L (22-29); Chloride 104 mmol/L (96-108); Creatinine Clr Calc Pharmacy 143.5; Estimated Glomerular Filt Rate > 60; Glucose Random 162 mg/dL (60-115); Potassium 3.7 mmol/l (3.3-5.1); Sodium 141 mmol/L (135-145)
--- NOTE | 2020-10-28 11:54 | P.PNIM_ITS ---
Subjective Subjective Date of Service: 10/28/20 Interval History: sob Cardiovascular Cardiovascular: Reports no additional cardiovascular complaints Gastrointestinal Gastrointestinal: Reports no additional gastrointestinal complaints Physical Exam Vital Signs: Vital Signs: Last Vital Signs Temp 97.8 F 10/28/20 09:07 Pulse 67 10/28/20 09:07 Resp 20 10/28/20 09:07 BP 132/62 10/28/20 09:07 Pulse Ox 97 10/28/20 09:07 Body Mass Index 39.0 General: AO X 3, no acute distress Resp: CTA bilateral CVS: S1,S2,RRR GI: soft, non tender, non distended Neuro: motor grossly intact Psych: appropriate affect Objective Data Current Medications Generic Name Dose Route Start Last Admin Trade Name Freq PRN Reason Stop Dose Admin Acetaminophen 650 mg 10/28/20 09:11 Acetaminophen 325 Mg Tablet PO Q6H PRN Pain, Mild (Pain Scale 1-3) Docusate Sodium 100 mg 10/28/20 09:11 Docusate Sodium 100 Mg Capsule PO DAILY PRN Constipation Enoxaparin Sodium 125 mg 10/28/20 09:00 10/28/20 09:37 Enoxaparin Sodium 150 Mg/Ml Syringe SUBCUT 125 mg Q12H KAROLINA Administration Nitrofurantoin Macrocrystals 50 mg 10/28/20 18:00 Nitrofurantoin Macrocrystal 50 Mg Capsule PO BID KAROLINA Prochlorperazine Edisylate 5 mg 10/28/20 09:11 Prochlorperazine Edisylate 10 Mg/2 Ml Vial IVPUSH Q6H PRN Nausea and Vomiting Sodium Chloride 3 ml 10/28/20 09:11 10/28/20 09:39 0.9 % Sodium Chloride Flush 3 Ml Syringe IVFLUSH 3 ml QSHIFT KAROLINA Administration Valacyclovir HCl 500 mg 10/29/20 09:00 Valacycyclovir Hcl 500 Mg Tablet PO DAILY [facility] Labs CBC & Chem 7: 10/28/20 09:31 10/28/20 09:31 Assessment and Plan (1) Acute respiratory failure with hypoxia: Status: Acute (2) Bilateral pulmonary embolism: Status: Acute Assessment and Plan: 55F with recent covid, presented with sob, found to have dvt and bilateral PE acute hypoxic respiratory failure due to PE and recent covid therapeutic lovenox, check echo likley provoked by COVID
--- NOTE | 2020-10-28 12:49 | MHC.CM.PN ---
FEMALE 55 dx COVID+ SHE IS INDEPENDENT WITH ALL FUNCTIONAL MOBILITY. A HCP was document and placed on chart. Copies were provided to the Pt. DP home no services family transport. CM will follow to assess for a change in Pts DC needs.
[2020-10-28] MEDS: nitrofurantoin macrocrystaL 50 MG CAPSULE PO ×2 (17:32→20:14)
[2020-10-28] MEDS: Prochlorperazine Edisylate 10 MG/2 ML VIAL 5 MG IVPUSH (20:10)
[2020-10-28 22:02] LABS: INTERNATIONAL NORM RATIO 1.1 (0.9-1.1); Prothrombin Time 13.5 SEC (10.8-13.0)
[2020-10-28 22:25] LABS: Anion Gap 13 (12-20); Blood Urea Nitrogen 14 mg/dL (9-16); Calcium 8.2 mg/dL (8.4-10.2); Carbon Dioxide 28 mmol/L (22-29); Chloride 104 mmol/L (96-108); Creatinine Clr Calc Pharmacy 133.4; Estimated Glomerular Filt Rate > 60; Glucose Random 127 mg/dL (60-115); Magnesium 2.3 mg/dL (1.6-2.6); Potassium 3.5 mmol/l (3.3-5.1); Sodium 141 mmol/L (135-145)
[2020-10-29 03:56] VITALS: BP 131/84; PULSE 56; RESP 18; TEMP 37; O2SAT 95
[2020-10-29] MEDS: Enoxaparin Sodium 150 MG/ML SYRINGE 125 MG SUBCUT (07:48)
[2020-10-29] MEDS: nitrofurantoin macrocrystaL 50 MG CAPSULE PO ×2 (07:48→20:16)
[2020-10-29] MEDS: 0.9 % Sodium Chloride Flush 3 ML SYRINGE IVFLUSH ×3 (07:49→20:16)
[2020-10-29 08:00] VITALS: BP 132/70; PULSE 56; RESP 20; TEMP 36.6; O2SAT 95
[2020-10-29 11:29] VITALS: BP 127/60; PULSE 63; TEMP 36.7; O2SAT 95
--- NOTE | 2020-10-29 12:52 | HO.PM.IMPN ---
Subjective Subjective Date of Service: 10/29/20 Interval History: nausea Cardiovascular Cardiovascular: Reports no additional cardiovascular complaints Respiratory Respiratory: Reports no additional respiratory complaints Physical Exam Vital Signs: Vital Signs: Last Vital Signs Temp 98.1 F 10/29/20 11:29 Pulse 63 10/29/20 11:29 Resp 20 10/29/20 08:00 BP 127/60 10/29/20 11:29 Pulse Ox 95 10/29/20 11:29 Body Mass Index 39.0 General: AO X 3, no acute distress Resp: CTA bilateral CVS: S1,S2,RRR GI: soft, non tender, non distended Neuro: motor grossly intact Psych: appropriate affect Objective Data Current Medications Generic Name Dose Route Start Last Admin Trade Name Freq PRN Reason Stop Dose Admin Acetaminophen 650 mg 10/28/20 09:11 Acetaminophen 325 Mg Tablet PO Q6H PRN Pain, Mild (Pain Scale 1-3) Dexamethasone 3 mg 10/29/20 10:30 10/29/20 12:30 Dexamethasone 0.5 Mg Tablet PO 3 mg DAILY [facility] Administration Docusate Sodium 100 mg 10/28/20 09:11 Docusate Sodium 100 Mg Capsule PO DAILY PRN Constipation Nitrofurantoin Macrocrystals 50 mg 10/28/20 18:00 10/29/20 07:48 Nitrofurantoin Macrocrystal 50 Mg Capsule PO 50 mg BID KAROLINA Administration Prochlorperazine Edisylate 5 mg 10/28/20 09:11 10/28/20 20:10 Prochlorperazine Edisylate 10 Mg/2 Ml Vial IVPUSH 5 mg Q6H PRN Administration Nausea and Vomiting Rivaroxaban 15 mg 10/29/20 17:00 Rivaroxaban 15 Mg Tablet PO BIDWM [facility] Sodium Chloride 3 ml 10/28/20 09:11 10/29/20 07:49 0.9 % Sodium Chloride Flush 3 Ml Syringe IVFLUSH 3 ml QSHIFT [facility] Administration Valacyclovir HCl 500 mg 10/29/20 09:00 10/29/20 07:48 Valacycyclovir Hcl 500 Mg Tablet PO 500 mg DAILY KAROLINA Administration Labs CBC & Chem 7: 10/28/20 09:31 10/28/20 21:38 Microbiology Microbiology Results: Microbiology 10/28/20 06:15 Blood - Venous Blood Culture - Preliminary No growth after 24 hours. 10/27/20 18:47 Blood - Venous Blood Culture - Preliminary No growth after 24 hours. Assessment and Plan (1) Acute respiratory failure with hypoxia: Status: Acute (2) Bilateral pulmonary embolism: Status: Acute Assessment and Plan: 55F with recent covid, presented with sob, found to have dvt and bilateral PE acute hypoxic respiratory failure due to PE and recent covid change to xarelto 15mg bid for 21 days then 20mg daily, echo with normal RV likley provoked by COVID nausea trial of low dose decadron
[2020-10-29 16:00] VITALS: BP 134/71; PULSE 64; RESP 18; TEMP 36.7; O2SAT 95
[2020-10-29] MEDS: Rivaroxaban 15 MG TABLET PO (16:12)
[2020-10-29 19:35] VITALS: BP 130/60; PULSE 58; RESP 20; TEMP 36.5; O2SAT 95
[2020-10-30] VITALS: BP 131/69; PULSE 52; RESP 18; TEMP 36.8; O2SAT 95
[2020-10-30 06:31] VITALS: BP 143/80; PULSE 57; RESP 17; TEMP 36.5; O2SAT 95
[2020-10-30 08:00] VITALS: BP 142/76; PULSE 58; RESP 18; TEMP 36.4; O2SAT 95
[2020-10-30] MEDS: Rivaroxaban 15 MG TABLET PO ×2 (08:06→18:33)
[2020-10-30] MEDS: nitrofurantoin macrocrystaL 50 MG CAPSULE PO ×2 (08:06→21:46)
[2020-10-30] MEDS: 0.9 % Sodium Chloride Flush 3 ML SYRINGE IVFLUSH ×2 (08:06→17:15)
--- NOTE | 2020-10-30 10:59 | HO.PM.IMPN ---
Subjective Subjective Date of Service: 10/30/20 Interval History: nausea, some relief with decadron Cardiovascular Cardiovascular: Reports no additional cardiovascular complaints Gastrointestinal Gastrointestinal: Reports no additional gastrointestinal complaints Physical Exam Vital Signs: Vital Signs: Last Vital Signs Temp 97.5 F 10/30/20 08:00 Pulse 58 10/30/20 08:00 Resp 18 10/30/20 08:00 BP 142/76 H 10/30/20 08:00 Pulse Ox 95 10/30/20 08:00 Body Mass Index 39.0 General: AO X 3, no acute distress Resp: CTA bilateral CVS: S1,S2,RRR GI: soft, non tender, non distended Neuro: motor grossly intact Psych: appropriate affect Objective Data Current Medications Generic Name Dose Route Start Last Admin Trade Name Rajanq PRN Reason Stop Dose Admin Acetaminophen 650 mg 10/28/20 09:11 Acetaminophen 325 Mg Tablet PO Q6H PRN Pain, Mild (Pain Scale 1-3) Dexamethasone 3 mg 10/29/20 10:30 10/30/20 08:06 Dexamethasone 0.5 Mg Tablet PO 3 mg DAILY [facility] Administration Docusate Sodium 100 mg 10/28/20 09:11 Docusate Sodium 100 Mg Capsule PO DAILY PRN Constipation Nitrofurantoin Macrocrystals 50 mg 10/28/20 18:00 10/30/20 08:06 Nitrofurantoin Macrocrystal 50 Mg Capsule PO 50 mg BID KAROLINA Administration Prochlorperazine Edisylate 5 mg 10/28/20 09:11 10/28/20 20:10 Prochlorperazine Edisylate 10 Mg/2 Ml Vial IVPUSH 5 mg Q6H PRN Administration Nausea and Vomiting Rivaroxaban 15 mg 10/29/20 17:00 10/30/20 08:06 Rivaroxaban 15 Mg Tablet PO 15 mg BIDWM [facility] Administration Sodium Chloride 3 ml 10/28/20 09:11 10/30/20 08:06 0.9 % Sodium Chloride Flush 3 Ml Syringe IVFLUSH 3 ml QSHIFT [facility] Administration Valacyclovir HCl 500 mg 10/29/20 09:00 10/30/20 08:06 Valacycyclovir Hcl 500 Mg Tablet PO 500 mg DAILY [facility]OL[facility] Administration Labs CBC & Chem 7: 10/28/20 09:31 10/28/20 21:38 Microbiology Microbiology Results: Microbiology 10/28/20 06:15 Blood - Venous Blood Culture - Preliminary No growth after 48 hours. 10/27/20 18:47 Blood - Venous Blood Culture - Preliminary No growth after 48 hours. Assessment and Plan (1) Acute respiratory failure with hypoxia: Status: Acute (2) Bilateral pulmonary embolism: Status: Acute Assessment and Plan: 55F with recent covid, presented with sob, found to have dvt and bilateral PE acute hypoxic respiratory failure due to PE and recent covid changed to xarelto 15mg bid for 21 days then 20mg daily, echo with normal RV, bnp normal likley provoked by COVID nausea some improvement on low dose decadron plan for dc in next 24-48hrs once tolerating diet
[2020-10-30] MEDS: polyethylene glycoL 3350 17 GM POWD.PACK PO (12:40)
[2020-10-30] MEDS: Calcium Carbonate 750 MG TAB.CHEW PO (12:40)
[2020-10-30 15:50] VITALS: BP 144/79; PULSE 68; RESP 18; TEMP 36.6; O2SAT 95
[2020-10-30] MEDS: Sennosides 8.6 MG TABLET 17.2 MG PO (18:45)
[2020-10-30] MEDS: bisacodyL 5 MG TABLET.DR PO (18:45)
[2020-10-30 19:22] VITALS: BP 139/69; PULSE 52; RESP 18; TEMP 36.8; O2SAT 95
--- NOTE | 2020-10-30 23:04 | PC.NURSE ---
During report, day nurse told this RN that pt lost IV access. Talked to pt about placing new IV and she would prefer not to. Pt anticipating discharge tomorrow on all PO meds. MD aware of no new IV placement.
[2020-10-31] VITALS: BP 139/73; PULSE 50; RESP 18; TEMP 37.2; O2SAT 96
[2020-10-31 04:00] VITALS: PULSE 53; RESP 18
[2020-10-31 07:39] VITALS: BP 131/77; PULSE 56; RESP 19; TEMP 36.5; O2SAT 95
[2020-10-31 07:49] VITALS: O2SAT 95
[2020-10-31] MEDS: Rivaroxaban 15 MG TABLET PO (09:00)
[2020-10-31] MEDS: nitrofurantoin macrocrystaL 50 MG CAPSULE PO (09:00)
--- NOTE | 2020-10-31 11:52 | P.DS_ITS ---
DS: Providers Provider Date of Service: 10/31/20 Date of admission: 10/27/20 22:17 Primary care physician: Unknown Physician DS: Diagnosis Discharge Diagnosis (1) Acute respiratory failure with hypoxia: Status: Acute (2) Bilateral pulmonary embolism: Status: Acute DS: Medications Discharge Medications Home Medications: Home Medications Medication Instructions Recorded Confirmed nitrofurantoin macrocrystal 1 cap PO BID 10/28/20 10/28/20 valacyclovir 0.5 tab PO DAILY 10/28/20 10/28/20 Previous Rx's Medication Instructions Recorded dexamethasone 3 mg PO DAILY #14 tab 10/31/20 rivaroxaban [Xarelto] 15 mg PO BIDWM #42 tab 10/31/20 DS: Summary Hospital Course Hospital Course: Patient was admitted for acute hypoxic respiratory failure secondary to bilateral pulmonary embolism likely due to recent COVID infection. She was started on Xarelto 15 mg b.i.d. for 21 days and then decrease to 20 mg daily. Course was complicated by severe nausea, likely due to post COVID symptoms. They did improve with low-dose Decadron. Patient is feeling better will be disc harged home. Time Spent with Patient Time attestation: Total time spent providing and/or coordinating discharge services: Discharge coordination time: Greater than 30 minutes Physical Exam Vital Signs: Vital Signs: Last Vital Signs Temp 97.7 F 10/31/20 07:39 Pulse 56 10/31/20 07:39 Resp 19 10/31/20 07:39 BP 131/77 10/31/20 07:39 Pulse Ox 95 10/31/20 07:49 Body Mass Index 39.0 General: AO X 3, no acute distress Resp: CTA bilateral CVS: S1,S2,RRR GI: soft, non tender, non distended Neuro: motor grossly intact Psych: appropriate affect DS: Data Data Completed and Pending Labs on day of discharge: Laboratory Tests 10/27/20 10/27/20 10/27/20 18:47 18:47 18:47 WBC 9.5 RBC 4.11 L Hgb 12.6 Hct 37.0 MCV 90.0 MCH 30.7 MCHC 34.1 RDW 12.0 Plt Count 320 MPV 9.5 Immature Gran % (Auto) 0.4 Neut % (Auto) 67.7 Lymph % (Auto) 20.6 Price % (Auto) 10.0 Eos % (Auto) 1.1 Baso % (Auto) 0.2 Lymph # (Auto) 2.0 Price # (Auto) 1.0 Eos # (Auto) 0.1 Baso # (Auto) 0.0 Abs Immat Gran (auto) 0.04 H Absolute Neuts (auto) 6.4 Absolute Nucleated RBC 0.000 Nucleated RBC % (auto) 0.0 PT 15.4 H INR 1.3 H APTT 29.8 Sodium 139 Potassium 3.5 Chloride 101 Carbon Dioxide 26 Anion Gap 16 BUN 9 Creatinine 0.66 Estim Creat Clear Calc 143.5 Estimated GFR > 60 Random Glucose 118 H Lactic Acid Calcium 8.2 L Magnesium 2.1 Total Bilirubin 0.7 Direct Bilirubin 0.3 AST 20 ALT 23 Alkaline Phosphatase 78 Troponin I High Sens B-Natriuretic Peptide Total Protein 6.4 L Albumin 3.5 Lipase 25 COVID-19 (JOSIAH) COVID-19 TruQu Com 10/27/20 10/27/20 10/27/20 18:47 18:47 22:34 WBC RBC Hgb Hct MCV MCH MCHC RDW Plt Count MPV Immature Gran % (Auto) Neut % (Auto) Lymph % (Auto) Price % (Auto) Eos % (Auto) Baso % (Auto) Lymph # (Auto) Price # (Auto) Eos # (Auto) Baso # (Auto) Abs Immat Gran (auto) Absolute Neuts (auto) Absolute Nucleated RBC Nucleated RBC % (auto) PT INR APTT Sodium Potassium Chloride Carbon Dioxide Anion Gap BUN Creatinine Estim Creat Clear Calc Estimated GFR Random Glucose Lactic Acid 0.8 Calcium Magnesium Total Bilirubin Direct Bilirubin AST ALT Alkaline Phosphatase Troponin I High Sens 13.1 B-Natriuretic Peptide Total Protein Albumin Lipase COVID-19 (JOSIAH) Negative COVID-19 Clin Com See Note 10/28/20 10/28/20 10/28/20 05:56 09:31 09:31 WBC 8.1 RBC 4.21 Hgb 12.8 Hct 38.0 MCV 90.3 MCH 30.4 MCHC 33.7 RDW 11.9 Plt Count 361 MPV 9.5 Immature Gran % (Auto) 0.5 H Neut % (Auto) 72.3 Lymph % (Auto) 18.5 L Price % (Auto) 8.6 Eos % (Auto) 0.0 Baso % (Auto) 0.1 Lymph # (Auto) 1.5 Price # (Auto) 0.7 Eos # (Auto) 0.0 Baso # (Auto) 0.0 Abs Immat Gran (auto) 0.04 H Absolute Neuts (auto) 5.8 Absolute Nucleated RBC 0.000 Nucleated RBC % (auto) 0.0 PT 14.7 H INR 1.2 H APTT 30.8 Sodium Potassium Chloride Carbon Dioxide Anion Gap BUN Creatinine Estim Creat Clear Calc Estimated GFR Random Glucose Lactic Acid Calcium Magnesium Total Bilirubin Direct Bilirubin AST ALT Alkaline Phosphatase Troponin I High Sens B-Natriuretic Peptide 33 Total Protein Albumin Lipase COVID-19 (JOSIAH) COVID-19 [employer] 10/28/20 10/28/20 10/28/20 09:31 21:38 21:38 WBC RBC Hgb Hct MCV MCH MCHC RDW Plt Count MPV Immature Gran % (Auto) Neut % (Auto) Lymph % (Auto) Price % (Auto) Eos % (Auto) Baso % (Auto) Lymph # (Auto) Price # (Auto) Eos # (Auto) Baso # (Auto) Abs Immat Gran (auto) Absolute Neuts (auto) Absolute Nucleated RBC Nucleated RBC % (auto) PT 13.5 H INR 1.1 APTT Sodium 141 141 Potassium 3.7 3.5 Chloride 104 104 Carbon Dioxide 24 28 Anion Gap 17 13 BUN 11 14 Creatinine 0.66 0.71 Estim Creat Clear Calc 143.5 133.4 Estimated GFR > 60 > 60 Random Glucose 162 H D 127 H Lactic Acid Calcium 8.4 8.2 L Magnesium 2.3 Total Bilirubin Direct Bilirubin AST ALT Alkaline Phosphatase Troponin I High Sens B-Natriuretic Peptide Total Protein Albumin Lipase COVID-19 (JOSIAH) COVID-19 TruQu Com Preliminary micro results at discharge 10/28/20 06:15 Blood Culture - Preliminary Blood - Venous No growth after 48 hours. 10/27/20 18:47 Blood Culture - Preliminary Blood - Venous No growth after 48 hours. Discharge Plan Discharge Patient Disposition: Home, Self-Care Referrals: Physician,Unknown [Primary Care Provider] - Discharge Medications: New Xarelto 15 mg Tablet 15 mg PO BIDWM Qty: 42 RF: 0 dexamethasone 0.5 mg Tablet 3 mg PO DAILY Qty: 14 RF: 0 Continued nitrofurantoin macrocrystal 100 mg capsule 1 cap PO BID RF: 0 valacyclovir 1 gram tablet 0.5 tab PO DAILY RF: 0 Discharge Orders: Discharge Order (Routine); Ordered 10/31/20 Ordered By: Guilherme Carlisle Activity on Discharge: As tolerated Visit Report Forms: Patient Portal Discharge page Care Plan Goals: manage pe Health Concerns: pe Plan of Treatment: xarelto 15mg bid for 21 days then 20mg daily for 6 months total
--- NOTE | 2020-10-31 11:52 | MHC.CM.PN ---
Pt cleared for DC home today with no services
== END 2020-10-31 13:00 | disposition home or self-care (01) | DRG 134 ==
LOC: HO.ED 23:13 → HO.IMC 10-28 07:18
PROVIDERS: Nurse Practitioner Family; Admitting Provider Internal Medicine; Emergency Provider Emergency Medicine; PCP Nurse Practitioner Family; Visit Provider Internal Medicine
DX: I26.94 Multiple subsegmental thrombotic pulmonary emboli without acute cor pulmonale (principal); J96.01 Acute respiratory failure with hypoxia; B94.8 Sequelae of other specified infectious and parasitic diseases; I82.402 Acute embolism and thrombosis of unspecified deep veins of left lower extremity; Z79.01 Long term (current) use of anticoagulants; Z79.899 Other long term (current) drug therapy
CPT/HCPCS: 36415; 71275; 80048; 80076; 83605; 83690; 83735; 83880; 84484; 85025; 85610; 85730; 87040; 87635; 93005; 93306; 93970; 96361; 96372; 96374; 96375; 99284; 99291; J1100; J1650; J2405; J8540; Q9967

== ENCOUNTER 2020-11-20 10:00 | Outpatient (RCR) | payer OTHER, SELFPAY | END 2021-01-07 11:04 | disposition other institution (70) | LOC: HO.PTWFD 10:00 | PROVIDERS: Visit Provider Nurse Practitioner | DX: H81.10 Benign paroxysmal vertigo, unspecified ear (principal) | CPT/HCPCS: 95992; 97162; 97535 ==

== ENCOUNTER 2021-01-15 14:14 | Emergency (ER) | payer OTHER, SELFPAY ==
--- NOTE | ~2021-01-15 | US_ITS ---
EXAMINATION: DOPPLER VENOUS ULTRASOUND EXTREMITY, LEFT CLINICAL INFORMATION: Left lower extremity pain and edema. COMPARISON: None. TECHNIQUE: Vargas-scale, Doppler and spectral analysis of the lower extremity was performed. FINDINGS: There is no evidence for a deep venous thrombosis within the visualized lower extremity veins. There is normal flow, compression and augmentation. ADDITIONAL FINDINGS: No White's cyst is identified. US/US venous duplex LE IMPRESSION: Unremarkable examination. Specifically, no evidence for DVT.
[2021-01-15 14:27] VITALS: BP 166/74; PULSE 76; RESP 15; TEMP 36.7; O2SAT 97; BMI 39.7
--- NOTE | 2021-01-15 16:11 | ED_ITS ---
HPI - General Adult General Chief complaint: General Medical Stated complaint: lt leg swelling Time Seen by Provider: 01/15/21 16:09 Source: patient Mode of arrival: ambulatory Limitations: no limitations History of Present Illness HPI narrative: 55-year-old female with a past medical history of DVTs, PE secondary to COVID-19 infection currently on Xarelto here with left lower extremity swelling and pain x2 days. Patient does note she has some shortness of breath which is chronic for her and is unchanged. No cough, fevers, chills, redness. She does feel like the left lower extremity is warm. Denies numbness or tingling. She has been compliant with her Xarelto Related Data Home Medications Medication Instructions Recorded Confirmed nitrofurantoin macrocrystal 1 cap PO BID 10/28/20 10/28/20 valacyclovir 0.5 tab PO DAILY 10/28/20 10/28/20 Previous Rx's Medication Instructions Recorded dexamethasone 3 mg PO DAILY #14 tab 10/31/20 rivaroxaban [Xarelto] 15 mg PO BIDWM #42 tab 10/31/20 Allergies Allergy/AdvReac Type Severity Reaction Status Date / Time No Known Allergies Allergy Verified 10/23/20 16:37 Review of Systems Review of Systems: Yes all other systems are reviewed and are negative Constitutional: Constitutional: Reports no additional constitutional complaints, Denies body ache(s), Denies chills, Denies fever(s), Denies headache(s) and Denies weakness Eyes: Eyes: Reports no additional eye complaints and Denies change in vision ENT: Reports system reviewed and no additional complaints, except as documented, Denies dizziness, Denies headache(s), Denies nasal congestion, Denies nasal discharge and Denies neck pain Cardiovascular: Cardiovascular: Reports no additional cardiovascular complaints, Denies chest pain, Reports leg edema and Denies dyspnea Respiratory: Respiratory: Reports no additional respiratory complaints, Denies cough and Denies dyspnea Gastrointestinal: Gastrointestinal: Reports no additional gastrointestinal complaints, Denies abdominal pain, Denies diarrhea, Denies nausea and Denies vomiting Genitourinary: Genitourinary: Reports no additional female genitourinary complaints and Denies urinary incontinence Musculoskeletal: Musculoskeletal: Reports no additional musculoskeletal complaints, Denies back pain, Denies arthralgias, Denies joint swelling, Denies neck pain, Denies numbness and Denies tingling Integumentary/Breasts: Skin/Breast: Reports system reviewed and no additional complaints, except as docu and Denies rash Neurologic: Reports system reviewed and no additional complaints, except as documented, Denies Abnormal speech present, Denies dizziness, Denies headache(s), Denies numbness, Denies tingling and Denies weakness PMFSH Past Medical History Attestation statement: The following information was validated with the patient. Source: old records reviewed and nursing notes reviewed Medical History (Updated 01/15/21 @ 18:31 by Ani Anderson NP) DVT (deep venous thrombosis) Herpes Surgical History Previous back surgery Social History Social History Household Members: Spouse and Children Housing: House Alcohol intake: never Smoking Status: Former smoker Advance Directives: No Advance Directives Information Provided: Yes service: No Current occupational status: employed Physical Exam Vital Signs: Vital Signs: Last Vital Signs Temp 98.1 F 01/15/21 18:22 Pulse 61 01/15/21 18:22 Resp 18 01/15/21 18:22 BP 135/73 01/15/21 18:22 Pulse Ox 97 01/15/21 18:22 Body Mass Index 39.7 Const: General: cooperative, healthy appearing, comfortable and no acute distress Orientation/consciousness: patient oriented x3 Limitations: no limitations HENMT: Head: Yes normal to inspection Ears: hearing grossly normal bilaterally General nose exam: Normal external nose present Face and sinus: Yes normal facial exam Mouth: Normal oral and palatal mucosa present Throat: Yes posterior oropharynx normal Eyes: General: appearance normal, both eyes and all related structures Pupils: Equal, round and reactive pupils present Neck: Neck: Yes normal visual inspection Chest: Chest palpation & inspection: normal inspection of the chest Resp: Effort & Inspection: normal respiratory effort Auscultation: clear to auscultation bilaterally Cardio: Rate: regular rate Rhythm: regular rhythm Peripheral pulses: Peripheral pulses 2+ throughout GI: Inspection: Yes normal to inspection Palpation (GI): Soft to palpation and nontender Auscultation: normal bowel sounds Back/Spine/Pelvis: Thoracic/Lumbar Spine: thoracic and lumbar spine normal to inspection Skin: General skin exam: no rashes or lesions noted Neuro: General: patient oriented x3, no focal motor deficits and normal sensation to monofilament Cranial nerves: Yes Equal, round and reactive pupils present Cognition (Neuro): normal cognition Speech: No Abnormal speech present Gait exam (Neuro): Normal gait present Motor exam (neuro): 5/5 motor strength present throughout Extrem: Other: Scant swelling to the left lower extremity which is nonpitting. Palpable pulses distally. There is no warmth or erythema. There is no tenderness. General: Yes normal to inspection Course Course Course Narrative: 55-year-old female with a past medical history of PE, DVT currently on Xarelto here with left lower extremity swelling times 48 hours. Concern for DVT, will check US to r/o. 1950-ultrasound negative for DVT. Reviewed findings with the patient. We discussed that she should follow-up with her primary care doctor and for persistent symptoms she may consider getting a repeat ultrasound. Comfortable with discharge home. Medical Decision Making Imaging Data Venous US: Attestation: I personally reviewed and interpreted this imaging study as follows: Radiologist's impression: EXAMINATION: DOPPLER VENOUS ULTRASOUND EXTREMITY, LEFT CLINICAL INFORMATION: Left lower extremity pain and edema. COMPARISON: None. TECHNIQUE: Vargas-scale, Doppler and spectral analysis of the lower extremity was performed. FINDINGS: There is no evidence for a deep venous thrombosis within the visualized lower extremity veins. There is normal flow, compression and augmentation. ADDITIONAL FINDINGS: No White's cyst is identified. US/US venous duplex LE LT IMPRESSION: Unremarkable examination. Specifically, no evidence for DVT. Discharge Plan Discharge Clinical Impression: Left leg swelling Patient Disposition: Home, Self-Care Instructions: Leg Edema (ED) Additional Instructions: Repeat ultrasound in 48 hours for continued symptoms Prescriptions: No Action nitrofurantoin macrocrystal 100 mg capsule 1 cap PO BID RF: 0 valacyclovir 1 gram tablet 0.5 tab PO DAILY RF: 0 Xarelto 15 mg Tablet 15 mg PO BIDWM Qty: 42 RF: 0 dexamethasone 0.5 mg Tablet 3 mg PO DAILY Qty: 14 RF: 0 Referrals: Alyssa Escalera [employer] [Primary Care Provider] - 2 days Interventions: ED Discharge Assessment Last Done: 01/15/21 18:38 Discharge Date/Time: 01/15/21 18:40
[2021-01-15 18:22] VITALS: BP 135/73; PULSE 61; RESP 18; TEMP 36.7; O2SAT 97
== END 2021-01-15 18:40 | disposition home or self-care (01) ==
PROVIDERS: Emergency Provider Emergency Medicine Emergency Medical Services; PCP Nurse Practitioner Family
DX: R60.0 Localized edema (principal); Z79.899 Other long term (current) drug therapy; Z87.891 Personal history of nicotine dependence
CPT/HCPCS: 93971; 99283

== ENCOUNTER → 2021-01-21 15:06 | Outpatient (BNVA) | payer OTHER, SELFPAY | PROVIDERS: PCP Nurse Practitioner Family; Visit Provider Hospitalist ==

== ENCOUNTER 2021-01-28 10:34 | Outpatient (REF) | payer OTHER, SELFPAY | END 2021-01-28 10:35 | disposition home or self-care (01) | LOC: HO.LAB 10:34 | PROVIDERS: Visit Provider Hospitalist | DX: Z13.89 Encounter for screening for other disorder (principal) ==

== ENCOUNTER 2021-01-29 10:00 | Outpatient (RCR) | payer OTHER, SELFPAY ==
--- NOTE | 2021-03-18 09:29 | MHC.PT.DC ---
[facility] [place] Office [place] Office [place] Office [address] Mesfin Brambila [address] [phone] F: [phone] F: [phone] F: [phone] F: [phone] Physical Therapy Discharge Report Diagnosis: VERTIGO Date of Surgery: NA Date of Evaluation: 01/28/21 Date of Discharge: 03/04/21 Treatments to Date: 2 Cancellations to Date: 0 No Shows to Date: 0 Discharge Status: Patient Elected to Stop Discharge Summary: Pt cancelled remaining visits, current status is unknown. At last attended visit therapist writes: 01/29/21- Pt arrived stating she was still dizzy. She was re-assessed in [facility] [place]. She was negative for nystagmus but had vertigo. CRM x 1 was done and then assessed in [facility] [place] and B roll test. She was negative for nystagmus and vertigo. Semont therefore trailed for R PC. Post semont she was re- assessed in [facility] [place]. CRM x 1 repeated. Pt was sent home with [facility] for R PC. Pt also reported of feeling full in her sinuses and having a lot pressure around her eyes. Pt was advised to take allergry medications to address it. If she continues to have same symptoms in next session assess for vestibular hypofunction. Eulogio Lepe DPT Electronically signed by: SANDY Yu PTT Please sign and return to therapist. Thank you for your referral.
== END 2021-03-18 09:48 | disposition other institution (70) ==
LOC: HO.PT 10:00
PROVIDERS: PCP Nurse Practitioner Family; Visit Provider Hospitalist
DX: I26.99 Other pulmonary embolism without acute cor pulmonale (principal); J96.01 Acute respiratory failure with hypoxia; U07.1 COVID-19; J12.89 Other viral pneumonia
CPT/HCPCS: 95992; 97161

== ENCOUNTER 2021-01-29 11:08 | Outpatient (REF) | payer OTHER, SELFPAY ==
[2021-01-29 12:25] LABS: MANUAL DIFF FLAG NO
[2021-01-29 12:30] LABS: Basophils Percent Auto 0.7 % (0-2); Eosinophils Absolute Auto 0.2 X10*3/uL (0.0-0.4); Eosinophils Percent Auto 3.1 % (0-4); Hematocrit 41.2 % (37-47); Hemoglobin 13.7 g/dl (12.0-16.0); Imm Gran Abs Auto 0.01 X10*3/uL (0.00-0.03); Imm Gran Pct Auto 0.2 % (0.0-0.4); Lymphocytes Absolute Auto 2.6 X10*3/uL (1.2-4.9); Lymphocytes Percent Auto 47.5 % (20-40); Mean Corpuscular HGB Conc 33.3 g/dl (31.0-35.0); Mean Corpuscular Hemoglobin 31.3 pg (27.0-33.0); Mean Corpuscular Volume 94.1 fL (80-98); Mean Platelet Volume 10.5 fL (9.4-12.3); Monocytes Absolute Auto 0.5 X10*3/uL (0.1-1.2); Monocytes Percent Auto 9.4 % (2-11); Neutrophils Absolute Auto 2.2 X10*3/uL (2.0-8.3); Neutrophils Percent Auto 39.1 % (45-73); Platelet Count 262 X10*3/uL (160-400); Red Blood Count 4.38 X10*6/uL (4.20-5.50); Red Cell Distribution Width 13.5 % (11.0-16.0); White Blood Count 5.5 X10*3/uL (4.8-10.8)
[2021-01-29 12:48] LABS: D Dimer < 200 NG/ML
[2021-01-29 12:59] LABS: Anion Gap 11 (12-20); Blood Urea Nitrogen 16 mg/dL (9-16); Calcium 8.9 mg/dL (8.4-10.2); Carbon Dioxide 28 mmol/L (22-29); Chloride 106 mmol/L (96-108); Estimated Glomerular Filt Rate > 60; Glucose Random 89 mg/dL (60-115); Potassium 4.4 mmol/L (3.3-5.1); Sodium 141 mmol/L (135-145)
[2021-01-29 13:24] LABS: Erythrocyte Sedimentation Rate 6 MM/HR (0-20)
[2021-02-01 07:57] LABS: SARS COV2 IgG Positive (Negative)
== END 2021-01-29 11:09 | disposition home or self-care (01) ==
LOC: HO.LAB 11:08
PROVIDERS: PCP Nurse Practitioner Family; Visit Provider Hospitalist
DX: U07.1 COVID-19 (principal); J12.89 Other viral pneumonia
CPT/HCPCS: 36415; 80048; 85025; 85379; 85652; 86769

== ENCOUNTER 2021-03-02 14:10 | Outpatient (REF) | payer OTHER, SELFPAY ==
--- NOTE | 2021-03-02 18:01 | PFT_ITS ---
FLOWS: FEV1 97% of predicted at 3.30 L. FVC 88% of predicted at 3.86 L. FEV1 to FVC ratio of 0.86. No bronchodilator response. LUNG VOLUMES: Total lung capacity 89% of predicted at 5.44 L. Residual volume 72% of predicted at 1.62 L. Slow vital capacity 98% of predicted at 3.82 L. Expiratory reserve volume 67% of predicted at 0.83 L. Diffusion capacity is mildly decreased, diffusion capacity corrects to normal after adjustment for alveolar ventilation. IMPRESSION: No obstructive or restrictive ventilatory defect. No bronchodilator response. Decreased expiratory reserve volume suggests extrathoracic restriction likely secondary to abdominal obesity. Lee Toribio MD AP/MODL / [id number]
== END 2021-03-02 14:11 | disposition home or self-care (01) ==
LOC: HO.RESP 14:10
PROVIDERS: PCP Nurse Practitioner Family; Visit Provider Hospitalist
DX: I26.99 Other pulmonary embolism without acute cor pulmonale (principal); U07.1 COVID-19; J12.89 Other viral pneumonia
CPT/HCPCS: 94060; 94727; 94729

== ENCOUNTER 2021-04-26 11:48 | Outpatient (REF) | payer OTHER, SELFPAY ==
[2021-04-26 14:36] LABS: Anion Gap 14 (12-20); Blood Urea Nitrogen 19 mg/dL (9-16); Calcium 9.4 mg/dL (8.4-10.2); Carbon Dioxide 23 mmol/L (22-29); Chloride 109 mmol/L (96-108); Estimated Glomerular Filt Rate > 60; Glucose Random 109 mg/dL (60-115); Sodium 142 mmol/L (135-145)
== END 2021-04-26 11:49 | disposition home or self-care (01) ==
LOC: HO.LAB 11:48
PROVIDERS: PCP Hospitalist; Visit Provider Hospitalist
DX: I26.99 Other pulmonary embolism without acute cor pulmonale (principal); J12.89 Other viral pneumonia; U07.1 COVID-19
CPT/HCPCS: 36415; 80048

== ENCOUNTER 2021-04-27 14:23 | Outpatient (REF) | payer OTHER, SELFPAY ==
--- NOTE | ~2021-04-27 | CT_ITS ---
EXAMINATION: CT ANGIOGRAM OF THE CHEST WITH AND WITHOUT CONTRAST (CT PULMONARY ANGIOGRAM FOR PE) CLINICAL INFORMATION: Reason for Exam I26.99 - Other pulmonary embolism without acute cor pulmo... COMPARISON: Previous chest CTA 10/27/2020 TECHNIQUE: Prior to contrast administration, noncontrast localization images were obtained. Subsequently, multidetector volumetric imaging was performed from the thoracic inlet to below the diaphragms following the administration of 71 mL Omnipaque 350 intravenous contrast. No contrast reaction reported Sagittal, coronal, and MIP oblique sagittal reformatted images were obtained on the CT workstation, uploaded to PACS, and reviewed. This CT examination was performed using dose optimization techniques as appropriate, variously including the following: *Automated exposure control *Adjustment of mA and/or kV according to patient size (this includes techniques or standardized protocols for targeted exams where dose is matched to indication/reason for exam; i.e. extremities or head) *Use of iterative reconstruction technique Total exam dose-length product 181 mGy-cm FINDINGS: QUALITY OF STUDY/CONTRAST BOLUS: Satisfactory. PULMONARY ARTERIES: No central or segmental pulmonary emboli. THORACIC AORTA: No aneurysm or dissection. LUNG: There is a 4 mm right lower lobe nodule axial 289 series 7. Comparison with prior exam from October 2020 demonstrates airspace disease in this region nodule cannot be compared. The lungs are otherwise clear. The previously identified bilateral infiltrates on October 2020 exam resolved.. PLEURA: No pleural effusion or pneumothorax. MEDIASTINUM: Normal heart size. No pericardial effusion. No hilar or mediastinal lymphadenopathy. No evidence of septal bowing or right heart strain. CHEST WALL/AXILLA: No axillary or internal mammary lymphadenopathy. OSSEOUS STRUCTURES: No acute or suspicious osseous abnormality. UPPER ABDOMEN: Unremarkable. No reflux of contrast into the hepatic veins to suggest elevated right heart pressures. CT/CT angio chest PE protocol IMPRESSION: No evidence of pulmonary embolism. 4 mm right lower lobe nodule. According to the UPDATED 2017 Fleischner Society recommendations, the advised follow-up imaging for less than 6 mm nodule: Low risk, no chest CT follow up high risk, optional chest CT follow-up in one year. VTE: negative
[2021-04-27] MEDS: iohexoL 350 MG/ML 100 ML INFUS..BTL IV (15:46)
== END 2021-04-27 14:24 | disposition home or self-care (01) ==
LOC: HO.CT 14:23
PROVIDERS: PCP Nurse Practitioner Family; Visit Provider Hospitalist
DX: I26.99 Other pulmonary embolism without acute cor pulmonale (principal); J12.89 Other viral pneumonia; U07.1 COVID-19
CPT/HCPCS: 71275; Q9967

== ENCOUNTER 2021-06-25 15:49 | Emergency (ER) | payer OTHER, SELFPAY ==
--- NOTE | ~2021-06-25 | US_ITS ---
EXAMINATION: US VENOUS ULTRASOUND WITH DOPPLER LOWER EXTREMITY, LEFT CLINICAL INFORMATION: Pain and swelling COMPARISON: Previous left lower extremity venous ultrasound most recent December 2020 TECHNIQUE: Ultrasound of the deep veins is performed from the hip to the calf with compression sonography and color and pulse Doppler assessment. Spectral analysis with color-flow imaging is performed. FINDINGS: There is normal venous compression and respiratory variation and augmented flow. The visualized common femoral vein, superficial femoral vein, profunda femoral vein, popliteal vein, and the trifurcation region shows no evidence of deep venous thrombosis. There is no significant popliteal fossa cyst. US/US venous duplex LE LT IMPRESSION: No DVT demonstrated in the left lower extremity.
--- NOTE | ~2021-06-25 | CT_ITS ---
EXAMINATION: CT ANGIOGRAM OF THE CHEST WITH AND WITHOUT CONTRAST (CT PULMONARY ANGIOGRAM FOR PE) CLINICAL INFORMATION: Reason for Exam hx of PE pleuritic chest pain COMPARISON: CT angiography chest 04/27/2021 TECHNIQUE: Prior to contrast administration, noncontrast localization images were obtained. Subsequently, multidetector volumetric imaging was performed from the thoracic inlet to below the diaphragms following the administration of 71 mL Omnipaque 350 intravenous contrast. No contrast reaction reported Sagittal, coronal, and MIP oblique sagittal reformatted images were obtained on the CT workstation, uploaded to PACS, and reviewed. This CT examination was performed using dose optimization techniques as appropriate, variously including the following: *Automated exposure control *Adjustment of mA and/or kV according to patient size (this includes techniques or standardized protocols for targeted exams where dose is matched to indication/reason for exam; i.e. extremities or head) *Use of iterative reconstruction technique Total exam dose-length product 125 mGy-cm FINDINGS: QUALITY OF STUDY/CONTRAST BOLUS: Satisfactory. The study is mildly motion degraded and there is streak artifact secondary to dense contrast within the brachiocephalic vein, superior vena cava and right heart.. PULMONARY ARTERIES: No central or segmental pulmonary emboli. THORACIC AORTA: No aneurysm or dissection. LUNG: There is mild smooth airways thickening within the right lower lobe with suggestion of mild thickening of the medium sized airways of the left lower and right middle lobes. There are areas of groundglass attenuation, most prominently within the right lower lobe with a somewhat central distribution. The appearance is suggestive of postinflammatory changes. There are no consolidative opacities. Previously described 4 mm right lower lobe nodule (image 167, series 8) is similar to the prior. No new nodules are identified. PLEURA: No pleural effusion or pneumothorax. MEDIASTINUM: Normal heart size. No pericardial effusion. There is right hilar/infrahilar lymphadenopathy. A lymph node caudal to the right inferior pulmonary vein (image 226, series 8 measures 1.6 x 1.4 cm. There is a lymph node adjacent to the right mainstem bronchus which measures 1.4 x 1 cm (image 130, series 8). A region of more slightly more distal lymph tissue measures 2.5 x 1.4 cm (image 184, series8 ). Given the possible airways inflammation and postinflammatory changes of the lungs, this may be reactive. No evidence of septal bowing or right heart strain. CHEST WALL/AXILLA: No axillary or internal mammary lymphadenopathy. OSSEOUS STRUCTURES: No acute or suspicious osseous abnormality. UPPER ABDOMEN: Unremarkable. No reflux of contrast into the hepatic veins to suggest elevated right heart pressures. CT/CT angio chest PE protocol IMPRESSION: No evidence of pulmonary embolism. Regions of airways thickening/inflammation, most notably within the right lower lobe, and associated areas of groundglass attenuation within the lung parenchyma suggestive of an airways inflammatory process. There is reactive lymphadenopathy in the right hilar/infrahilar region. VTE: negative
[2021-06-25 15:51] VITALS: BP 154/91; PULSE 66; RESP 18; TEMP 36.6; O2SAT 97; BMI 39.6
--- NOTE | 2021-06-25 16:03 | ECG_ITS ---
Test Reason : CHEST PAIN Blood Pressure : / mmHG Vent. Rate : 063 BPM Atrial Rate : 063 BPM P-R Int : 172 ms QRS Dur : 090 ms QT Int : 450 ms P-R-T Axes : 055 004 023 degrees QTc Int : 460 ms Normal sinus rhythm Normal ECG When compared with ECG of 27-OCT-2020 18:47, No significant change was found Referred By: Ember Coy Electronically Signed By:JUNI KIDD
--- NOTE | 2021-06-25 16:04 | ED_ITS ---
HPI - Chest Pain General Chief Complaint: Extremity Problem Stated Complaint: left calf pain Time Seen by Provider: 06/25/21 16:02 Source: patient and old records reviewed Mode of arrival: ambulatory Limitations: no limitations History of Present Illness complaint: other (L calf pain x 1 week pleuritic chest pain started yes terday) Pertinent past history: other (DVT and PE post COVID on xarelto until April) Onset (ago): week(s) (1) Prior episodes: Yes Onset: during rest and during exertion Pain location: left chest and right chest Pain radiation: none Severity: moderate Quality: sharp Relieving factors: nothing and other Exacerbating factors: inspiration and other (cough) Context: history of DVT/PE Associated symptoms: dyspnea and cough Treatment prior to arrival: none Related Data Home Medications Medication Instructions Recorded Confirmed nitrofurantoin macrocrystal 100 mg 1 cap PO BID 10/28/20 03/02/21 capsule valacyclovir 1 gram tablet 0.5 tab PO DAILY 10/28/20 03/02/21 rivaroxaban 20 mg tablet 20 mg PO DAILY 01/21/21 03/02/21 Previous Rx's Medication Instructions Recorded dexamethasone 0.5 mg tablet 3 mg PO DAILY #14 tab 10/31/20 rivaroxaban 15 mg tablet (Xarelto) 15 mg PO BIDWM #42 tab 10/31/20 albuterol sulfate 90 mcg/actuation 2 inh INHALATION Q6H PRN 30 Days 01/21/21 aerosol inhaler #18 g gabapentin 100 mg capsule 200 mg PO BEDTIME PRN 30 Days #60 01/21/21 (Neurontin) cap Allergies Allergy/AdvReac Type Severity Reaction Status Date / Time No Known Allergies Allergy Verified 03/02/21 15:05 Review of Systems Review of Systems: Constitutional : No Weight loss, No Fever, No Chills ENT/Mouth : No sore throat, No Rhinorrhea Eyes: No Eye Pain, No Swelling Cardiovascular : pos Chest Pain, pos SOB, no Dyspnea on Exertion, No Orthopnea, pos Edema, No Palpitations Respiratory : pos Cough, No Sputum Gastrointestinal : no Nausea, No Vomiting, No Diarrhea, No abdominal Pain, No Hematochezia, No Melena Genitourinary : No Dysuria, No Urinary Frequency Musculoskeletal : No joint pain, No Myalgias, No Joint Swelling, pos calf pain Skin : No Skin Lesions, No rash Neuro : No Weakness, No Numbness, No Dizziness, No Headache Psych : No Anxiety/Panic, No Depression Heme/Lymph: No Bruising, No Lymphadenopathy Endocrine : No Polyuria, No Polydipsia All other systems reviewed and are negative [facility] Past Medical History Attestation statement: The following information was validated with the patient. Medical History (Updated 06/25/21 @ 19:10 by Ember Coy DO) Bilateral pulmonary embolism DVT (deep venous thrombosis) Herpes Reactive airway disease Surgical History Previous back surgery Social History Social History Household Members: Spouse and Children Housing: House Alcohol intake: never Smoked in Last 30 Days: No Use of substances other than those prescribed or required for medical reasons: No Advance Directives: No Advance Directives Information Provided: Yes service: No Current occupational status: employed Physical Exam Vital Signs: Vital Signs: Last Vital Signs Temp 97.5 F 06/25/21 18:00 Pulse 66 06/25/21 18:00 Resp 16 06/25/21 18:00 BP 151/77 H 06/25/21 18:00 Pulse Ox 97 06/25/21 19:07 Body Mass Index 39.6 Appearance: Alert. Oriented X3. No acute distress. Eyes: Pupils equal, round and reactive to light. ENT: Pharynx normal. Neck: Normal inspection. Neck supple. CVS: Normal heart rate and rhythm. Pulses normal. Respiratory: No respiratory distress. Breath sounds normal. dry cough Abdomen: Soft and nontender. Skin: Skin warm and dry. Normal skin color. Normal skin turgor. Extremities: mild pitting both ankles, L calf pain L > R in size mildy. pos calf ttp Neuro: Oriented X 3. No motor deficit. No sensory deficit. Course Course Course Narrative: call to radiology for read EKG and trop negative, DVT of LLE negative signed out to [employer] pending CTA read. MDM - Chest Pain MDM Narrative Medical decision making narrative: 56 yo female with L calf pain x 1 week now with pleuritic chest pain since yesterday AM - at this time labs, US of leg for DVT, CTA for PE given her history, dispo per results and findings. Lab Data Result diagrams: 06/25/21 16:19 06/25/21 16:19 Labs: Lab Results 06/25/21 06/25/21 06/25/21 Range/Units 16:19 16:19 16:19 WBC 11.6 H (4.8-10.8) X10*3/uL RBC 4.31 (4.20-5.50) X10*6/uL Hgb 13.4 (12.0-16.0) g/dl Hct 40.0 (37-47) % MCV 92.8 (80-98) fL MCH 31.1 (27.0-33.0) pg MCHC 33.5 (31.0-35.0) g/dl RDW 13.6 (11.0-16.0) % Plt Count 275 (160-400) X10*3/uL MPV 10.1 (9.4-12.3) fL Immature Gran % (Auto) 0.3 (0.0-0.4) % Neut % (Auto) 68.3 (45-73) % Lymph % (Auto) 24.8 (20-40) % [place] % (Auto) 6.0 (2-11) % Eos % (Auto) 0.3 (0-4) % Baso % (Auto) 0.3 (0-2) % Lymph # (Auto) 2.9 (1.2-4.9) X10*3/uL [place] # (Auto) 0.7 (0.1-1.2) X10*3/uL Eos # (Auto) 0.0 (0.0-0.4) X10*3/uL Baso # (Auto) 0.0 (0.0-0.2) X10*3/uL Abs Immat Gran (auto) 0.04 H (0.00-0.03) X10*3/uL Absolute Neuts (auto) 7.9 (2.0-8.3) X10*3/uL Absolute Nucleated RBC 0.000 (0.0-0.012) X10*3/uL Nucleated RBC % (auto) 0.0 (0.0-0.2) /100WBC PT 10.8 (9.9-13.0) SEC INR 1.0 (0.9-1.1) APTT 32.2 (24.1-38.0) SEC Sodium 138 (135-145) mmol/L Potassium 4.3 (3.3-5.1) mmol/L Chloride 106 (96-108) mmol/L Carbon Dioxide 24 (22-29) mmol/L Anion Gap 12 (12-20) BUN 18 H (9-16) mg/dL Creatinine 0.70 (0.5-1.4) mg/dL Estim Creat Clear Calc 134.7 Estimated GFR > 60 Random Glucose 128 H (60-115) mg/dL Calcium 9.3 (8.4-10.2) mg/dL Magnesium 2.4 (1.6-2.6) mg/dL Total Bilirubin 0.4 (0.0-1.0) mg/dL Direct Bilirubin < 0.2 (0.0-0.5) mg/dL AST 15 (5-31) U/L ALT 18 (0-31) U/L Alkaline Phosphatase 103 D (39-117) U/L Troponin I High Sens (<3.5-17.0) ng/L B-Natriuretic Peptide (<100) pg/mL Total Protein 7.5 (6.5-8.0) g/dL Albumin 4.5 D (3.5-5.0) g/dL 06/25/21 Range/Units 16:19 WBC (4.8-10.8) X10*3/uL RBC (4.20-5.50) X10*6/uL Hgb (12.0-16.0) g/dl Hct (37-47) % MCV (80-98) fL MCH (27.0-33.0) pg MCHC (31.0-35.0) g/dl RDW (11.0-16.0) % Plt Count (160-400) X10*3/uL MPV (9.4-12.3) fL Immature Gran % (Auto) (0.0-0.4) % Neut % (Auto) (45-73) % Lymph % (Auto) (20-40) % [place] % (Auto) (2-11) % Eos % (Auto) (0-4) % Baso % (Auto) (0-2) % Lymph # (Auto) (1.2-4.9) X10*3/uL [place] # (Auto) (0.1-1.2) X10*3/uL Eos # (Auto) (0.0-0.4) X10*3/uL Baso # (Auto) (0.0-0.2) X10*3/uL Abs Immat Gran (auto) (0.00-0.03) X10*3/uL Absolute Neuts (auto) (2.0-8.3) X10*3/uL Absolute Nucleated RBC (0.0-0.012) X10*3/uL Nucleated RBC % (auto) (0.0-0.2) /100WBC PT (9.9-13.0) SEC INR (0.9-1.1) APTT (24.1-38.0) SEC Sodium (135-145) mmol/L Potassium (3.3-5.1) mmol/L Chloride (96-108) mmol/L Carbon Dioxide (22-29) mmol/L Anion Gap (12-20) BUN (9-16) mg/dL Creatinine (0.5-1.4) mg/dL Estim Creat Clear Calc Estimated GFR Random Glucose (60-115) mg/dL Calcium (8.4-10.2) mg/dL Magnesium (1.6-2.6) mg/dL Total Bilirubin (0.0-1.0) mg/dL Direct Bilirubin (0.0-0.5) mg/dL AST (5-31) U/L ALT (0-31) U/L Alkaline Phosphatase (39-117) U/L Troponin I High Sens < 3.5 (<3.5-17.0) ng/L B-Natriuretic Peptide 36 (<100) pg/mL Total Protein (6.5-8.0) g/dL Albumin (3.5-5.0) g/dL ECG Data ECG #1: Attestation: I personally reviewed and interpreted this ECG as follows: ECG interpretation date: 06/25/21 ECG interpretation time: 16:30 Interpretation: Rate: 63 Rhythm: NSR [place]: normal Normal P waves. Normal TYLER. Normal QRS complex. ST T wave : no HIEN, inverted III qTC: normal prior studies: no acute ischemia The study has been interpreted contemporaneously by me. . Discharge Plan Discharge Clinical Impression: Chest pain Qualifiers: Chest pain type: unspecified Qualified Code(s): R07.9 - Chest pain, unspecified Prescriptions: No Action nitrofurantoin macrocrystal 100 mg capsule 1 cap PO BID RF: 0 valacyclovir 1 gram tablet 0.5 tab PO DAILY RF: 0 Xarelto 15 mg Tablet 15 mg PO BIDWM Qty: 42 RF: 0 dexamethasone 0.5 mg Tablet 3 mg PO DAILY Qty: 14 RF: 0 Xarelto 20 mg tablet 20 mg PO DAILY RF: 0 gabapentin [Neurontin] 100 mg capsule 200 mg PO BEDTIME PRN (Reason: sleep) 30 Days Qty: 60 RF: 3 albuterol sulfate 90 mcg/actuation HFA aerosol inhaler 2 inh inhalation Q6H PRN (Reason: shortness of breath or wheezing) 30 Days Qty: 18 RF: 12
[2021-06-25 16:10] VITALS: BP 151/87; PULSE 71; RESP 14; O2SAT 96
[2021-06-25 16:30] LABS: MANUAL DIFF FLAG NO
[2021-06-25 16:34] LABS: Basophils Percent Auto 0.3 % (0-2); Eosinophils Percent Auto 0.3 % (0-4); Hemoglobin 13.4 g/dl (12.0-16.0); Imm Gran Abs Auto 0.04 X10*3/uL (0.00-0.03); Imm Gran Pct Auto 0.3 % (0.0-0.4); Lymphocytes Absolute Auto 2.9 X10*3/uL (1.2-4.9); Lymphocytes Percent Auto 24.8 % (20-40); Mean Corpuscular HGB Conc 33.5 g/dl (31.0-35.0); Mean Corpuscular Hemoglobin 31.1 pg (27.0-33.0); Mean Corpuscular Volume 92.8 fL (80-98); Mean Platelet Volume 10.1 fL (9.4-12.3); Monocytes Absolute Auto 0.7 X10*3/uL (0.1-1.2); Neutrophils Absolute Auto 7.9 X10*3/uL (2.0-8.3); Neutrophils Percent Auto 68.3 % (45-73); Platelet Count 275 X10*3/uL (160-400); Red Blood Count 4.31 X10*6/uL (4.20-5.50); Red Cell Distribution Width 13.6 % (11.0-16.0); White Blood Count 11.6 X10*3/uL (4.8-10.8)
[2021-06-25 16:42] LABS: Prothrombin Time 10.8 SEC (9.9-13.0)
[2021-06-25 16:44] LABS: Partial Thromboplastin Time 32.2 SEC (24.1-38.0)
[2021-06-25 16:50] LABS: Alanine Aminotransferase 18 U/L (0-31); Albumin Level 4.5 g/dL (3.5-5.0); Alkaline Phosphatase 103 U/L (39-117); Anion Gap 12 (12-20); Aspartate Amino Transferase 15 U/L (5-31); Bilirubin Direct < 0.2 mg/dL (0.0-0.5); Bilirubin Total 0.4 mg/dL (0.0-1.0); Blood Urea Nitrogen 18 mg/dL (9-16); Calcium 9.3 mg/dL (8.4-10.2); Carbon Dioxide 24 mmol/L (22-29); Chloride 106 mmol/L (96-108); Creatinine Clr Calc Pharmacy 134.7; Estimated Glomerular Filt Rate > 60; Glucose Random 128 mg/dL (60-115); Magnesium 2.4 mg/dL (1.6-2.6); Potassium 4.3 mmol/L (3.3-5.1); Sodium 138 mmol/L (135-145); Total Protein 7.5 g/dL (6.5-8.0)
[2021-06-25 16:56] LABS: B Type Natriuretic Peptide 36 pg/mL (<100); Troponin-I High Sensitivity < 3.5 ng/L (<3.5-17.0)
[2021-06-25] MEDS: iohexoL 350 MG/ML 100 ML INFUS..BTL IV (17:55)
[2021-06-25 18:00] VITALS: BP 151/77; PULSE 66; RESP 16; TEMP 36.4; O2SAT 96
[2021-06-25 19:07] VITALS: O2SAT 97
[2021-06-25 20:00] VITALS: BP 146/79; PULSE 66; RESP 16; TEMP 36.5; O2SAT 96
== END 2021-06-25 20:22 | disposition home or self-care (01) ==
PROVIDERS: Emergency Provider Emergency Medicine; PCP Nurse Practitioner Family
DX: R07.9 Chest pain, unspecified (principal); R06.02 Shortness of breath; M79.662 Pain in left lower leg; R60.0 Localized edema; Z86.718 Personal history of other venous thrombosis and embolism; Z86.711 Personal history of pulmonary embolism; Z79.01 Long term (current) use of anticoagulants; Z79.899 Other long term (current) drug therapy
CPT/HCPCS: 36415; 71275; 80048; 80076; 83735; 83880; 84484; 85025; 85610; 85730; 93005; 93971; 99284; Q9967

== ENCOUNTER 2021-09-14 14:14 | Outpatient (REF) | payer OTHER, SELFPAY | END 2021-09-14 14:15 | disposition home or self-care (01) | LOC: HO.LAB 14:14 | PROVIDERS: PCP Nurse Practitioner Family; Visit Provider Internal Medicine | DX: Z20.822 Contact with and (suspected) exposure to COVID-19 (principal) | CPT/HCPCS: C9803; U0003; U0005 ==

== ENCOUNTER 2022-01-31 10:47 | Outpatient (REF) | payer OTHER, SELFPAY ==
[2022-01-31 11:04] LABS: MANUAL DIFF FLAG NO
[2022-01-31 12:14] LABS: Basophils Percent Auto 0.6 % (0-2); Eosinophils Absolute Auto 0.1 X10*3/uL (0.0-0.4); Eosinophils Percent Auto 1.9 % (0-4); Hematocrit 41.5 % (37.0-47.0); Hemoglobin 13.7 g/dl (12.0-16.0); Imm Gran Abs Auto 0.01 X10*3/uL (0.00-0.03); Imm Gran Pct Auto 0.2 % (0.0-0.4); Lymphocytes Absolute Auto 3.1 X10*3/uL (1.2-4.9); Lymphocytes Percent Auto 49.9 % (20-40); Mean Corpuscular Hemoglobin 30.8 pg (27.0-33.0); Mean Corpuscular Volume 93.3 fL (80.0-98.0); Mean Platelet Volume 10.3 fL (9.4-12.3); Monocytes Absolute Auto 0.5 X10*3/uL (0.1-1.2); Monocytes Percent Auto 8.4 % (2-11); Neutrophils Absolute Auto 2.5 x10*3/uL (2.0-8.3); Platelet Count 282 X10*3/uL (160-400); Red Blood Count 4.45 X10*6/uL (4.20-5.50); Red Cell Distribution Width 13.2 % (11.0-16.0); White Blood Count 6.3 X10*3/uL (4.8-10.8)
[2022-01-31 12:49] LABS: Alanine Aminotransferase 16 U/L (0-31); Albumin Level 4.2 g/dL (3.5-5.0); Alkaline Phosphatase 92 U/L (39-117); Anion Gap 14 (12-20); Aspartate Amino Transferase 17 U/L (5-31); Bilirubin Total 0.5 mg/dL (0.0-1.0); Blood Urea Nitrogen 20 mg/dL (9-16); Calcium 9.3 mg/dL (8.4-10.2); Carbon Dioxide 23 mmol/L (22-29); Chloride 106 mmol/L (96-108); Estimated Glomerular Filt Rate > 60; Glucose Random 97 mg/dL (60-115); Potassium 4.5 mmol/L (3.3-5.1); Sodium 138 mmol/L (135-145)
[2022-01-31 12:51] LABS: B Type Natriuretic Peptide 33 pg/mL (<100)
[2022-01-31 13:06] LABS: ~HepC Num1 0.11 S/CO (0.00-0.79); ~Hepatitis C Antibody Nonreactive (Nonreactive)
[2022-01-31 13:11] LABS: Thyroid Stimulating Hormone 2.43 uIU/mL (0.32-4.0)
== END 2022-01-31 10:48 | disposition home or self-care (01) ==
LOC: HO.LAB 10:47
PROVIDERS: PCP Nurse Practitioner Family; Visit Provider Nurse Practitioner Family
DX: R60.0 Localized edema (principal); Z11.59 Encounter for screening for other viral diseases
CPT/HCPCS: 36415; 80053; 83880; 84443; 85025; 86803

== ENCOUNTER 2022-02-22 15:43 | Emergency (ER) | payer OTHER, SELFPAY ==
--- NOTE | ~2022-02-22 | US_ITS ---
EXAMINATION: US VENOUS ULTRASOUND WITH DOPPLER LOWER EXTREMITY, LEFT CLINICAL INFORMATION: Left leg pain and swelling. History of DVT COMPARISON: Previous exam most recent June 2021 TECHNIQUE: Ultrasound of the deep veins is performed from the hip to the calf with compression sonography and color and pulse Doppler assessment. Spectral analysis with color-flow imaging is performed. FINDINGS: There is normal venous compression and respiratory variation and augmented flow. The visualized common femoral vein, superficial femoral vein, profunda femoral vein, popliteal vein, and the trifurcation region shows no evidence of deep venous thrombosis. There is no significant popliteal fossa cyst. US/US venous duplex LE LT IMPRESSION: No DVT demonstrated in the left lower extremity.
[2022-02-22 15:53] VITALS: BP 135/74; PULSE 72; RESP 6; TEMP 36.6; O2SAT 97; BMI 40.4
--- NOTE | 2022-02-22 16:11 | ED.LOWEXIN ---
HPI - Extremity Injury (Lower) General Chief Complaint: Extremity Injury, Lower Stated Complaint: ?DVT Time Seen by Provider: 02/22/22 15:53 Source: patient Mode of arrival: ambulatory History of Present Illness HPI Narrative: 56-year-old female with a past medical history of COVID-19 complicated by DVT & PE no longer on anticoagulation, herpes, reactive airway, presenting to the ED complaining of left calf pain and tightness times a couple days. Admits prior DVT was in LLE. Denies SOB, CP, swelling, numbness/tingling, injury Onset (ago): day(s) Related Data Home Medications Medication Instructions Recorded Confirmed nitrofurantoin macrocrystal 100 mg 1 cap PO BID 10/28/20 03/02/21 capsule valacyclovir 1 gram tablet 0.5 tab PO DAILY 10/28/20 03/02/21 rivaroxaban 20 mg tablet 20 mg PO DAILY 01/21/21 03/02/21 Previous Rx's Medication Instructions Recorded dexamethasone 0.5 mg tablet 3 mg PO DAILY #14 tab 10/31/20 rivaroxaban 15 mg tablet (Xarelto) 15 mg PO BIDWM #42 tab 10/31/20 albuterol sulfate 90 mcg/actuation 2 inh INHALATION Q6H PRN 30 Days 01/21/21 aerosol inhaler #18 g gabapentin 100 mg capsule 200 mg PO BEDTIME PRN 30 Days #60 01/21/21 (Neurontin) cap Allergies Allergy/AdvReac Type Severity Reaction Status Date / Time No Known Allergies Allergy Verified 03/02/21 15:05 Review of Systems Review of Systems: Constitutional: No Fever, No Chills, No Fatigue, No Malaise ENT/Mouth: No Ear Pain, No Nasal Congestion, No sore throat, No Rhinorrhea, No Swallowing Difficulty Eyes: No Eye Pain, No Swelling, No Redness Cardiovascular: No Chest Pain, No SOB, No Dyspnea on Exertion, No Edema, No Palpitations Respiratory: No Cough, No Sputum, No Dyspnea Gastrointestinal: No Nausea, No Vomiting, No Abdominal pain Genitourinary: No Dysuria, No Urinary Frequency Musculoskeletal: + calf pain, No Myalgias, No Joint Swelling Skin: No Skin Lesions, No rash Neuro: No Weakness, No Numbness, No Paresthesias Yes all other systems are reviewed and are negative PMFSH Past Medical History Attestation statement: The following information was validated with the patient. Medical History Bilateral pulmonary embolism DVT (deep venous thrombosis) Herpes Reactive airway disease Surgical History Previous back surgery Social History Social History Household Members: Spouse and Children Housing: House Alcohol intake: never Advance Directives: Yes Advance Directives on File: Yes Advance Directives Date on File: 11/02/20 Patient : No service: No Current occupational status: employed Physical Exam Vital Signs: Vital Signs: Last Vital Signs Temp 97.9 F 02/22/22 15:53 Pulse 72 02/22/22 15:53 Resp 6 L 02/22/22 15:53 BP 135/74 02/22/22 15:53 Pulse Ox 97 02/22/22 15:53 BMI result Body Mass Index 40.4 Const: General: cooperative, healthy appearing and no acute distress Orientation/consciousness: patient oriented x3 Limitations: no limitations HEENT: Head: Yes normal to inspection and Yes atraumatic Ears: hearing grossly normal bilaterally General nose exam: Normal external nose present Face and sinus: Yes normal facial exam Eyes: General: appearance normal, both eyes and all related structures EOM: EOMs intact bilaterally Neck: Neck: Yes normal visual inspection and Yes no meningeal signs Resp: Effort & Inspection: normal respiratory effort and no respiratory distress Cardio: Rate: regular rate Heart sounds: S1 normal heart sound present and S2 normal heart sound present Peripheral pulses: dorsalis pedis present Skin: Rashes: no rashes Wounds: no wounds Neuro: General: patient oriented x3, tone normal and no meningeal signs Gait exam (Neuro): Normal gait present Extrem: Other: No apprecaible LE edema or swelling. No ecchymosis or erythema. Calf tenderness not reproducible on exam. Negative Homans sign. Neurovascular intact distally General: Yes normal to inspection Course Course Course Narrative: US venous duplex LE LT IMPRESSION: No DVT demonstrated in the left lower extremity. >> results discussed with patient including worrisome signs and symptoms and strict return precautions MDM - Extremity Injury (Lower) MDM Narrative Medical decision making narrative: 56-year-old female with a past medical history of COVID-19 complicated by DVT & PE no longer on anticoagulation, herpes, reactive airway, presenting to the ED complaining of left calf pain and tightness times a couple days. On exam vital signs stable, NAD/well-appearing, physical exam as above. Concern for DVT as patient is high risk, will obtain ultrasound. Low concern for PE Medical Records Attestation: I reviewed the patient's medical records. Lab Data Attestation: I reviewed the patient's lab results. Discharge Plan Discharge Clinical Impression: Pain of left calf Patient Disposition: Home, Self-Care Instructions: Leg Pain (ED) Additional Instructions: Your ultrasound was negative for blood clot Take Tylenol and Motrin as needed. Elevate. Apply heat. If you develop persist or worsening symptoms, fever, shortness of breath please return to the ED Prescriptions: No Action nitrofurantoin macrocrystal 100 mg capsule 1 cap PO BID 0RF Label Comments: ON DAY 3 OF THE ANTIBOTIC valacyclovir 1 gram tablet 0.5 tab PO DAILY 0RF Xarelto 15 mg Tablet 15 mg PO BIDWM Qty: 42 0RF Rx Instructions: 15mg bid for 3 weeks, then 20mg daily dexamethasone 0.5 mg Tablet 3 mg PO DAILY Qty: 14 0RF Xarelto 20 mg tablet 20 mg PO DAILY 0RF gabapentin [Neurontin] 100 mg capsule 200 mg PO BEDTIME PRN (Reason: sleep) 30 Days Qty: 60 3RF albuterol sulfate 90 mcg/actuation HFA aerosol inhaler 2 inh inhalation Q6H PRN (Reason: shortness of breath or wheezing) 30 Days Qty: 18 12RF Referrals: Alyssa Escalera [employer] DEVELOPER [Primary Care Provider] - 1 week
[2022-02-22 17:35] VITALS: RESP 16
== END 2022-02-22 17:37 | disposition home or self-care (01) ==
PROVIDERS: Emergency Provider Emergency Medicine; PCP Nurse Practitioner Family
DX: R60.0 Localized edema (principal); M79.605 Pain in left leg; Z79.899 Other long term (current) drug therapy
CPT/HCPCS: 93971; 99284

== ENCOUNTER 2022-06-16 07:22 | Outpatient (REF) | payer OTHER, SELFPAY ==
--- NOTE | ~2022-06-16 | MR_ITS ---
EXAMINATION: MR LUMBAR SPINE WITHOUT CONTRAST CLINICAL INFORMATION: Left-sided sciatica. COMPARISON: None. TECHNIQUE: Multiplanar, multisequence imaging was obtained. FINDINGS: VERTEBRAL BODIES AND PARASPINAL STRUCTURES: Severe disc space narrowing with chronic fatty marrow endplate changes evident at the L3-L4 and L4-L5 levels. Mild anterolisthesis noted at the L3-L4 level. There are no compression fractures. The paraspinal soft tissues are unremarkable. Chronic postlaminectomy changes visible at the L3-L4 and L4-L5 levels. CONUS MEDULLARIS AND CAUDA EQUINE: The distal cord, conus tip, and cauda equina nerve roots are normal. SPINAL LEVELS: L1-L2: No disc pathology. Mild right-sided facet arthropathy. No central canal stenosis or foraminal narrowing. L2-L3: Mild anterolisthesis and diffuse disc bulge with moderate facet arthropathy. Mild central canal stenosis and mild left foraminal narrowing. L3-L4: Severe loss of disc height with a mild disc bulge and endplate spurring. Hypertrophic facet arthropathy and chronic right-sided postlaminectomy changes. Mild central canal stenosis. Moderate bilateral foraminal narrowing with facet spurring mildly distorting the exiting left L3 nerve root. L4-L5: Severe loss of disc height and mild disc bulge with hypertrophic facet arthropathy and chronic left-sided postlaminectomy changes. Slight narrowing of the central canal. A 2.5 mm synovial cyst protrudes from the anteromedial left facet joint into the subarticular zone with impingement of the left L5 nerve root, also due to bony spurring as well. Severe left and moderate right foraminal narrowing. L5-S1: Left subarticular zone disc protrusion in conjunction with facet arthropathy distorts the left S1 nerve root. No significant central canal stenosis. Moderate bilateral foraminal narrowing. MR/MR lumbar spine wo con IMPRESSION: Mild anterolisthesis, diffuse disc bulge, and moderate facet arthropathy with mild central canal stenosis at the L2-L3 level. Severe chronic degenerative disc disease at the L3-L4 level with chronic postlaminectomy changes. Moderate bilateral foraminal narrowing with osseous spurring mildly distorting the left L3 nerve root. Severe chronic degenerative disc disease with facet arthropathy at the L4-L5 level. Chronic postoperative changes. A 2.5 mm synovial cyst protrudes from the left facet joint into the left subarticular zone contributing to impingement of the left L5 nerve root, also part due to bony spurring. Severe left foraminal narrowing and moderate right foraminal narrowing. Left subarticular zone disc protrusion and facet spurring at L5-S1 distorting the left S1 nerve root. Moderate bilateral foraminal narrowing.
== END 2022-06-16 07:23 | disposition home or self-care (01) ==
LOC: HO.MRI 07:22
PROVIDERS: PCP Nurse Practitioner Family; Visit Provider Internal Medicine
DX: M53.86 Other specified dorsopathies, lumbar region (principal)
CPT/HCPCS: 72148

== ENCOUNTER 2022-07-13 05:51 | Outpatient (REF) | payer OTHER, SELFPAY ==
--- NOTE | ~2022-07-13 | FL_ITS ---
EXAMINATION: XR FLUOROSCOPY WITH IMAGES CLINICAL INFORMATION: M54.16 - Radiculopathy, lumbar region COMPARISON: MR lumbar spine 06/16/2022 TECHNIQUE: Fluoroscopy performed by Dr. John Rodriguez. Fluoroscopy time: 0.7. Cumulative Dose: 3.01 mGy. DAP: 2.19 Gy-cm2. Images: 5. FINDINGS: There are spinal needles overlying the outer left L4, and L5 neural foramen. There is contrast seen in the respective nerve sheaths. Some early transforaminal epidural extension is suggested. No visible vascular communication. FL/FL guidance in treatment room IMPRESSION: Fluoroscopy for pain management procedures.
== END 2022-07-13 05:52 | disposition home or self-care (01) ==
LOC: HO.RADIR 05:51
PROVIDERS: Visit Provider Internal Medicine
DX: M54.16 Radiculopathy, lumbar region (principal); M96.1 Postlaminectomy syndrome, not elsewhere classified
CPT/HCPCS: 64483; 64493; 64494; J1100

== ENCOUNTER 2022-08-05 14:00 | Outpatient (RCR) | payer OTHER, SELFPAY ==
[2022-06-10 07:08] VITALS: BP 167/79; PULSE 96; O2SAT 98
== END 2022-09-20 10:04 | disposition home or self-care (01) ==
LOC: HO.PT 14:00
PROVIDERS: PCP Nurse Practitioner Family; Visit Provider Family Medicine
DX: M54.32 Sciatica, left side (principal)
CPT/HCPCS: 97035; 97110; 97140; 97162; 97530

== ENCOUNTER 2023-01-23 00:53 | Emergency (ER) | payer BC, SELFPAY ==
--- NOTE | ~2023-01-23 | CT_ITS ---
EXAMINATION: CT ANGIOGRAM OF THE CHEST WITH AND WITHOUT CONTRAST (CT PULMONARY ANGIOGRAM FOR PE) CLINICAL INFORMATION: Reason for Exam post covid sob COMPARISON: 06/25/2021 04/27/2021 TECHNIQUE: Prior to contrast administration, noncontrast localization images were obtained. Subsequently, multidetector volumetric imaging was performed from the thoracic inlet to below the diaphragms following the administration of 65 mL Omnipaque 350 intravenous contrast. No contrast reaction reported Sagittal, coronal, and MIP oblique sagittal reformatted images were obtained on the CT workstation, uploaded to PACS, and reviewed. This CT examination was performed using dose optimization techniques as appropriate, variously including the following: *Automated exposure control *Adjustment of mA and/or kV according to patient size (this includes techniques or standardized protocols for targeted exams where dose is matched to indication/reason for exam; i.e. extremities or head) *Use of iterative reconstruction technique Total exam dose-length product 570 mGy-cm FINDINGS: QUALITY OF STUDY/CONTRAST BOLUS: Satisfactory. PULMONARY ARTERIES: No pulmonary emboli. THORACIC AORTA: No aneurysm. LUNG: Diffuse moderate bronchial wall thickening without bronchiectasis. Mosaic attenuation throughout both lungs likely relates to air trapping in the setting of small airways inflammation. Unchanged 5 mm mean diameter nodule in the right lower lobe. No follow-up imaging recommended for stable pulmonary nodules of this size per the Fleischner Society guidelines. PLEURA: No pleural effusion or pneumothorax. MEDIASTINUM: Normal heart size. No pericardial effusion. No hilar or mediastinal lymphadenopathy. No evidence of septal bowing or right heart strain. CORONARY ARTERY CALCIFICATION: None visualized on this study. CHEST WALL/AXILLA: No axillary or internal mammary lymphadenopathy. OSSEOUS STRUCTURES: No acute or suspicious osseous abnormality. UPPER ABDOMEN: Unremarkable. CT/CT angio chest PE protocol IMPRESSION: * No pulmonary embolism. * Chronic airways disease with diffuse moderate bronchial wall thickening and mosaic attenuation throughout both lungs compatible with small airways inflammation VTE: negative
[2023-01-23 00:57] VITALS: BP 143/72; PULSE 70; RESP 14; TEMP 37.1; O2SAT 96; BMI 40.0
--- NOTE | 2023-01-23 01:02 | ECG_ITS ---
Test Reason : CHEST PAIN Blood Pressure : / mmHG Vent. Rate : 070 BPM Atrial Rate : 070 BPM P-R Int : 172 ms QRS Dur : 086 ms QT Int : 410 ms P-R-T Axes : 052 004 040 degrees QTc Int : 442 ms Normal sinus rhythm Normal ECG When compared with ECG of 25-JUN-2021 16:29, No significant change was found Referred By: Generic ED Physician Electronically Signed By:Sal Mckinney
[2023-01-23 01:22] LABS: Basophils Percent Auto 0.5 % (0-2); Eosinophils Absolute Auto 0.1 X10*3/uL (0.0-0.4); Eosinophils Percent Auto 0.9 % (0-4); Hematocrit 37.8 % (37.0-47.0); Hemoglobin 12.6 g/dl (12.0-16.0); Imm Gran Abs Auto 0.01 X10*3/uL (0.00-0.03); Imm Gran Pct Auto 0.2 % (0.0-0.4); Lymphocytes Absolute Auto 1.4 X10*3/uL (1.2-4.9); Lymphocytes Percent Auto 25.2 % (20-40); MANUAL DIFF FLAG NO; Mean Corpuscular HGB Conc 33.3 g/dl (31.0-35.0); Mean Corpuscular Hemoglobin 30.4 pg (27.0-33.0); Mean Corpuscular Volume 91.3 fL (80.0-98.0); Monocytes Absolute Auto 0.8 X10*3/uL (0.1-1.2); Monocytes Percent Auto 13.8 % (2-11); Neutrophils Absolute Auto 3.3 x10*3/uL (2.0-8.3); Neutrophils Percent Auto 59.4 % (45-73); Platelet Count 211 X10*3/uL (160-400); Red Blood Count 4.14 X10*6/uL (4.20-5.50); Red Cell Distribution Width 13.4 % (11.0-16.0); White Blood Count 5.5 X10*3/uL (4.8-10.8)
[2023-01-23 01:27] LABS: Prothrombin Time 11.3 SEC (10.0-13.1)
[2023-01-23 01:29] LABS: D Dimer High Sensitivity 151 NG/ML
[2023-01-23 01:36] LABS: Anion Gap 18 (12-20); Blood Urea Nitrogen 15 mg/dL (9-16); Calcium 8.8 mg/dL (8.4-10.2); Carbon Dioxide 19 mmol/L (22-29); Chloride 105 mmol/L (96-108); Estimated Glomerular Filt Rate > 60; Glucose Random 130 mg/dL (60-115); Potassium 4.8 mmol/L (3.3-5.1); Sodium 137 mmol/L (135-145)
[2023-01-23 01:42] LABS: Troponin-I High Sensitivity < 3.5 ng/L (<3.5-17.0)
--- NOTE | 2023-01-23 01:51 | ED_ITS ---
HPI - SOB/Dyspnea General Chief Complaint: Dyspnea Stated Complaint: not feeling well Time Seen by Provider: 01/23/23 01:43 Related Data Home Medications Medication Instructions Recorded Confirmed valacyclovir 1 gram tablet 0.5 tab PO DAILY 10/28/20 08/12/22 gabapentin 100 mg capsule 200 mg PO BEDTIME PRN 07/20/22 08/12/22 Previous Rx's Medication Instructions Recorded albuterol sulfate 90 mcg/actuation 2 inh inhalation Q6H PRN shortness 01/21/21 aerosol inhaler of breath or wheezing 30 days #18 grams tramadol 50 mg tablet 50 mg PO BID PRN pain #10 tabs 06/13/22 peg 3350-electrolytes 236 240 ml PO Q10M 1 day #4,000 mL 07/20/22 gram-22.74 gram-6.74 gram-5.86 gram solution (Golytely) cefdinir 300 mg capsule 300 mg PO BID #14 caps 01/23/23 codeine 10 mg-guaifenesin 100 mg/5 10 ml PO Q6H PRN cough #237 mL 01/23/23 mL oral liquid prednisone 20 mg tablet 40 mg PO DAILY #10 tabs 01/23/23 Allergies Allergy/AdvReac Type Severity Reaction Status Date / Time No Known Allergies Allergy Verified 08/12/22 10:51 [facility] Past Medical History Medical History (Updated 01/23/23 @ 05:39 by Gama Tavarez MD) Bilateral pulmonary embolism DVT (deep venous thrombosis) Herpes Reactive airway disease Surgical History (Updated 07/20/22 @ 10:43 by GISELLE Zamarripa) H/O colonoscopy History of esophagogastroduodenoscopy (EGD) History of vein stripping Previous back surgery Social History Social History (Updated 07/20/22 @ 10:44 by GISELLE Zamarripa) Household Members: Spouse and Children Housing: House Alcohol intake: never Patient Tobacco Use Status: Former Tobacco user Advance Directives: Yes Advance Directives on File: Yes Advance Directives Date on File: 11/02/20 service: No Current occupational status: employed Physical Exam Vital Signs: Vital Signs: Last Vital Signs Temp 98.7 F 01/23/23 00:57 Pulse 86 01/23/23 02:23 Resp 18 01/23/23 02:23 BP 143/72 H 01/23/23 00:57 Pulse Ox 96 01/23/23 00:57 O2 Del Method Room Air 01/23/23 00:57 BMI result Body Mass Index 40.0 Medications Administered Discontinued Medications Generic Name Dose Route Start Last Admin Trade Name Freq PRN Reason Stop Dose Admin Albuterol Sulfate 5 mg/ 0 mg 01/23/23 02:06 01/23/23 02:20 Ipratropium [place] 0.5 mg INHALE 01/23/23 02:07 3 each ONCE ONE Administration Guaifenesin/Codeine Phosphate 10 ml 01/23/23 02:06 01/23/23 02:25 Guaifen/Codeine Sf 200/20/10ml 10 Ml Liquid PO 01/23/23 02:07 10 ml ONCE ONE Administration Iohexol 65 ml 01/23/23 03:42 01/23/23 03:43 Iohexol 350 Mg/Ml 100 Ml Infus..Btl IV 01/23/23 03:43 65 ml ONCE ONE Administration Medical Decision Making Medical Decision Making MDM Narrative: Patient with chronic lung disease status post COVID CTA chest negative for PE showed in information clinically patient has tracheobronchitis will give cefdinir prednisone advised to continue inhaler Lab Data MDM Lab Attestation statement: I reviewed the patient's lab results. 01/23/23 01:16 01/23/23 01:16 Labs: Lab Results 01/23/23 01/23/23 01/23/23 Range/Units 01:16 01:16 01:16 WBC 5.5 (4.8-10.8) X10*3/uL RBC 4.14 L (4.20-5.50) X10*6/uL Hgb 12.6 (12.0-16.0) g/dl Hct 37.8 (37.0-47.0) % MCV 91.3 (80.0-98.0) fL MCH 30.4 (27.0-33.0) pg MCHC 33.3 (31.0-35.0) g/dl RDW 13.4 (11.0-16.0) % Plt Count 211 D (160-400) X10*3/uL MPV 10.0 (9.4-12.3) fL Immature Gran % (Auto) 0.2 (0.0-0.4) % Neut % (Auto) 59.4 (45-73) % Lymph % (Auto) 25.2 (20-40) % [place] % (Auto) 13.8 H (2-11) % Eos % (Auto) 0.9 (0-4) % Baso % (Auto) 0.5 (0-2) % Lymph # (Auto) 1.4 (1.2-4.9) X10*3/uL [place] # (Auto) 0.8 (0.1-1.2) X10*3/uL Eos # (Auto) 0.1 (0.0-0.4) X10*3/uL Baso # (Auto) 0.0 (0.0-0.2) X10*3/uL Abs Immat Gran (auto) 0.01 (0.00-0.03) X10*3/uL Absolute Neuts (auto) 3.3 (2.0-8.3) x10*3/uL Absolute Nucleated RBC 0.000 (0.0-0.012) X10*3/uL Nucleated RBC % (auto) 0.0 (0.0-0.2) /100WBC PT 11.3 (10.0-13.1) SEC INR 1.0 (0.9-1.1) D-Dimer High Sensitivty 151 NG/ML Sodium 137 (135-145) mmol/L Potassium 4.8 (3.3-5.1) mmol/L Chloride 105 (96-108) mmol/L Carbon Dioxide 19 L (22-29) mmol/L Anion Gap 18 (12-20) BUN 15 (9-16) mg/dL Creatinine 0.83 (0.5-1.4) mg/dL Estim Creat Clear Calc 113.0 Estimated GFR > 60 Random Glucose 130 H (60-115) mg/dL Calcium 8.8 (8.4-10.2) mg/dL Troponin I High Sens (<3.5-17.0) ng/L Influenza Type A (PCR) (Negative) Influenza Type B (PCR) (Negative) RSV RNA Qual (PCR) (Negative) SARS-CoV-2 RNA (RT-PCR) (Negative) 01/23/23 01/23/23 Range/Units 01:16 01:20 WBC (4.8-10.8) X10*3/uL RBC (4.20-5.50) X10*6/uL Hgb (12.0-16.0) g/dl Hct (37.0-47.0) % MCV (80.0-98.0) fL MCH (27.0-33.0) pg MCHC (31.0-35.0) g/dl RDW (11.0-16.0) % Plt Count (160-400) X10*3/uL MPV (9.4-12.3) fL Immature Gran % (Auto) (0.0-0.4) % Neut % (Auto) (45-73) % Lymph % (Auto) (20-40) % [place] % (Auto) (2-11) % Eos % (Auto) (0-4) % Baso % (Auto) (0-2) % Lymph # (Auto) (1.2-4.9) X10*3/uL [place] # (Auto) (0.1-1.2) X10*3/uL Eos # (Auto) (0.0-0.4) X10*3/uL Baso # (Auto) (0.0-0.2) X10*3/uL Abs Immat Gran (auto) (0.00-0.03) X10*3/uL Absolute Neuts (auto) (2.0-8.3) x10*3/uL Absolute Nucleated RBC (0.0-0.012) X10*3/uL Nucleated RBC % (auto) (0.0-0.2) /100WBC PT (10.0-13.1) SEC INR (0.9-1.1) D-Dimer High Sensitivty NG/ML Sodium (135-145) mmol/L Potassium (3.3-5.1) mmol/L Chloride (96-108) mmol/L Carbon Dioxide (22-29) mmol/L Anion Gap (12-20) BUN (9-16) mg/dL Creatinine (0.5-1.4) mg/dL Estim Creat Clear Calc Estimated GFR Random Glucose (60-115) mg/dL Calcium (8.4-10.2) mg/dL Troponin I High Sens < 3.5 (<3.5-17.0) ng/L Influenza Type A (PCR) NEGATIVE (Negative) Influenza Type B (PCR) NEGATIVE (Negative) RSV RNA Qual (PCR) NEGATIVE (Negative) SARS-CoV-2 RNA (RT-PCR) NEGATIVE (Negative) Independent Interpretation I performed an independent interpretation of an: EKG Interpretation: Normal sinus rhythm heart rate 70 beats per minute normal interval normal axis no acute ST T wave changes no acute ischemia Discharge Plan Discharge Clinical Impression: Acute infective tracheobronchitis Patient Disposition: Home, Self-Care Instructions: Acute Bronchitis (ED) Additional Instructions: 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 Antibiotic and prednisone as prescribed Cough syrup for cough which will make you sleepy Follow-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 Prescriptions: New cefdinir 300 mg capsule 300 mg PO BID Qty: 14 0RF codeine-guaifenesin 10-100 mg/5 mL liquid 10 ml PO Q6H PRN (Reason: cough) Qty: 237 0RF prednisone 20 mg tablet 40 mg PO DAILY Qty: 10 0RF No Action valacyclovir 1 gram tablet 0.5 tab PO DAILY albuterol sulfate 90 mcg/actuation HFA aerosol inhaler 2 inh inhalation Q6H PRN (Reason: shortness of breath or wheezing) 30 Days Q ty: 18 12RF gabapentin 100 mg capsule 200 mg PO BEDTIME PRN peg 3350-electrolytes [Golytely] 236-22.74-6.74 -5.86 gram recon soln 240 ml PO Q10M 1 Days Qty: 4000 0RF Rx Instructions: until fecal effluent is clear; do not exceed a total volume of 2,000 mL tramadol 50 mg tablet 50 mg PO BID PRN (Reason: pain) Qty: 10 0RF
--- OUTSIDE RECORDS SUMMARY | 2023-01-23 02:04 | XMS_ITS | Continuity of Care Document ---
Author Name Unknown Organization [facility] ter Address [address] [place] [id number]- Care Team Providers Care Pathology Collector Name Role Phone Alyssa Escalera NP Primary Care Physician ( [phone] Encounter [facility] Date(s): 12/05/19 - 12/05/[address] [id number]- [facility] Attending Physician: Sabina Chatman CNM Allergies, Adverse Reactions, Alerts Substance Reaction Severity Status NKA Active Medications Amoxicillin By Mouth, Maintenance, 02/22/19 20:12:12 EDT Start Date: 02/22/19 Status: Ordered
[2023-01-23 02:10] LABS: Influenza A PCR NEGATIVE (Negative); Influenza B PCR NEGATIVE (Negative); Resp Syncy Virus RNA Qual PCR NEGATIVE (Negative); SARS COV2 PCR INHOUSE NEGATIVE (Negative)
[2023-01-23 02:23] VITALS: PULSE 86; RESP 18; O2SAT 96
[2023-01-23] MEDS: guaiFEN/Codeine SF 200/20/10ML 10 ML LIQUID PO (02:25)
[2023-01-23] MEDS: iohexoL 350 MG/ML 100 ML INFUS..BTL 65 ML IV (03:43)
--- NOTE | 2023-01-23 05:04 | PC.NURSE ---
Patient is alert and oriented x4. She is able to make her needs known. Patient ambulates independently with a steady gait. VSS. Patient reports pain in b/l chest d/t congestion and cough, 2/10 at present. Patient medicated per DEC. O2 Sat stable at 96-999% RA. Patient is resting on the stretcher bed, call cooper within patient's reach.
[2023-01-23 05:42] VITALS: BP 139/82; PULSE 78; RESP 18; TEMP 36.7; O2SAT 98
[2023-01-23 05:46] VITALS: BP 152/82; PULSE 66; RESP 15; O2SAT 98
== END 2023-01-23 05:56 | disposition home or self-care (01) ==
PROVIDERS: Emergency Provider Internal Medicine; PCP Nurse Practitioner Family
DX: J20.9 Acute bronchitis, unspecified (principal); R06.00 Dyspnea, unspecified; R07.89 Other chest pain; Z20.822 Contact with and (suspected) exposure to COVID-19; Z20.828 Contact with and (suspected) exposure to other viral communicable diseases; Z79.899 Other long term (current) drug therapy
CPT/HCPCS: 0241U; 36415; 71275; 80048; 84484; 85025; 85379; 85610; 93005; 94640; 99284; 99285; Q9967

== ENCOUNTER → 2023-05-11 09:45 | Outpatient (BNV) | payer BC, SELFPAY | PROVIDERS: PCP Nurse Practitioner Family; Visit Provider Radiology Diagnostic Radiology | DX: Z12.31 Encounter for screening mammogram for malignant neoplasm of breast (principal) | CPT/HCPCS: 77063; 77067 ==

== ENCOUNTER 2023-05-11 09:55 | Outpatient (REF) | payer BC, SELFPAY ==
--- NOTE | ~2023-05-11 | MM_ITS ---
EXAMINATION: MM SCREENING DIGITAL BREAST TOMOSYNTHESIS, BILATERAL CLINICAL INFORMATION: Screening. Asymptomatic. The lifetime risk of breast cancer based on the Tyrer-Cuzick Model is 7.7%. COMPARISON: Mammography: This study is compared with prior exams dating back to 2018. TECHNIQUE: Digital breast tomosynthesis is performed in both the craniocaudal and mediolateral oblique views along with computer-aided detection (CAD). Synthesized 2D images are generated from the tomosynthesis. FINDINGS: The breasts are almost entirely fatty (ACR BI-RADS breast composition Category a). There are no significant masses, abnormal calcifications, or other abnormalities. MM/MM tomosynthesis screening BI IMPRESSION: No mammographic evidence of malignancy. ASSESSMENT: BI-RADS BI-RADS 1 - Negative RECOMMENDATION: Routine annual mammography screening. 1 year F/U This examination should not preclude the clinical evaluation of a suspicious palpable abnormality. This patient's information was entered into a reminder system with a target due date for their next mammogram.
== END 2023-05-11 09:56 | disposition home or self-care (01) ==
LOC: HO.MAMMO 09:55
PROVIDERS: PCP Nurse Practitioner Family; Visit Provider Nurse Practitioner Family
DX: Z12.31 Encounter for screening mammogram for malignant neoplasm of breast (principal)
CPT/HCPCS: 77063; 77067

== ENCOUNTER 2023-09-11 15:00 | Emergency (ER) | payer BC, SELFPAY ==
--- NOTE | ~2023-09-11 | CT_ITS ---
EXAMINATION: CT ANGIOGRAM OF THE CHEST WITH AND WITHOUT CONTRAST (CT PULMONARY ANGIOGRAM FOR PE) CLINICAL INFORMATION: Reason for Exam cp, sob COMPARISON: None available. TECHNIQUE: Prior to contrast administration, noncontrast localization images were obtained. Subsequently, multidetector volumetric imaging was performed from the thoracic inlet to below the diaphragms following the administration of 80 mL Omnipaque 350 intravenous contrast. No contrast reaction reported Sagittal, coronal, and MIP oblique sagittal reformatted images were obtained on the CT workstation, uploaded to PACS, and reviewed. This CT examination was performed using dose optimization techniques as appropriate, variously including the following: *Automated exposure control *Adjustment of mA and/or kV according to patient size (this includes techniques or standardized protocols for targeted exams where dose is matched to indication/reason for exam; i.e. extremities or head) *Use of iterative reconstruction technique Total exam dose-length product 398 mGy-cm FINDINGS: QUALITY OF STUDY/CONTRAST BOLUS: Satisfactory. PULMONARY ARTERIES: There is good opacification of pulmonary artery and is branches with no intraluminal filling defect or narrowing seen. The thoracic aorta is of normal caliber. THORACIC AORTA: No aneurysm. LUNG: The lungs are well-expanded with compressive atelectatic changes in both lung bases. There are no pulmonary nodules, mass PLEURA: No pleural effusion or pneumothorax. MEDIASTINUM: Normal heart size. No pericardial effusion. No hilar or mediastinal lymphadenopathy. No evidence of septal bowing or right heart strain. CORONARY ARTERY CALCIFICATION: None visualized on this study. CHEST WALL/AXILLA: No axillary or internal mammary lymphadenopathy. OSSEOUS STRUCTURES: No aggressive lytic or sclerotic process seen. There is mild ventral spondylosis. UPPER ABDOMEN: Visualized liver, spleen, pancreas and gallbladder appears unremarkable. No reflux of contrast into the hepatic veins to suggest elevated right heart pressures. CT/CT angio chest PE protocol IMPRESSION: 1. No evidence of PE. 2. No evidence of aortic aneurysm. 3. Bibasilar atelectasis. VTE: negative.
--- NOTE | ~2023-09-11 | CT_ITS ---
EXAMINATION: CT HEAD WITHOUT CONTRAST CLINICAL INFORMATION: Hypertension COMPARISON: None available. TECHNIQUE: Contiguous axial imaging was performed from the skull base to vertex without intravenous administration of contrast. This CT examination was performed using dose optimization techniques as appropriate, variously including the following: *Automated exposure control *Adjustment of mA and/or kV according to patient size (this includes techniques or standardized protocols for targeted exams where dose is matched to indication/reason for exam; i.e. extremities or head) *Use of iterative reconstruction technique DLP: 719 mGy-cm FINDINGS: The ventricles and sulci are normal in size and configuration. No acute hemorrhage, mass effect or shift is evident. Vargas-white differentiation is maintained. In the posterior fossa, the brainstem, cerebellum and fourth ventricle image normally. The orbits and calvarium are intact. The paranasal sinuses and mastoid air cells are well pneumatized and clear. CT/CT head/brain wo IV con IMPRESSION: 1. Unremarkable noncontrast brain CT. No acute hemorrhage, mass effect or shift.
--- NOTE | ~2023-09-11 | XR_ITS ---
EXAMINATION: XR CHEST 2 VIEW CLINICAL INFORMATION: Hypertension COMPARISON: 10/23/2020 TECHNIQUE: PA and lateral views of the chest obtained. FINDINGS: The lungs are clear. There are no pleural effusions. The cardiomediastinal silhouette is normal. XR/XR chest 2V IMPRESSION: No acute cardiopulmonary disease.
--- NOTE | 2023-09-11 15:11 | ED_ITS ---
HPI - General Adult General Chief complaint: General Medical Stated complaint: hypertetion Time Seen by Provider: 09/11/23 15:26 Source: patient Mode of arrival: ambulatory Limitations: no limitations History of Present Illness HPI narrative: This is a 58-year-old female history of reactive airway disease, sciatica, DVT not on anticoagulation presenting to the emergency department for evaluation of high blood pressure over the past week worsening, highest pressure home 198 over 98. Patient is not on blood pressure meds. She called her PCP to make an appointment however is unable to get in until 2 weeks from today, patient reports she is having some substernal chest tightness with associated anxiety due to hypertension, reports family members at have had ruptured aneurysms therefore this is making her nervous. Some a/c shortness of breath as well intermittently w/ cough at times. Has hx of DVT secondary to covid-19 not on anticoags. No associated shortness breath, vision changes, dizziness, weakness headache. No associated head trauma She also mentions a week ago she woke up within acutely injected right eye. Which has since resolved. Related Data Home Medications Medication Instructions Recorded Confirmed valacyclovir 1 gram tablet 0.5 tab PO DAILY 10/28/20 08/12/22 gabapentin 100 mg capsule 200 mg PO BEDTIME PRN 07/20/22 08/12/22 Previous Rx's Medication Instructions Recorded albuterol sulfate 90 mcg/actuation 2 inh inhalation Q6H PRN shortness 01/21/21 aerosol inhaler of breath or wheezing 30 days #18 grams tramadol 50 mg tablet 50 mg PO BID PRN pain #10 tabs 06/13/22 peg 3350-electrolytes 236 240 ml PO Q10M 1 day #4,000 mL 07/20/22 gram-22.74 gram-6.74 gram-5.86 gram solution (Golytely) cefdinir 300 mg capsule 300 mg PO BID #14 caps 01/23/23 codeine 10 mg-guaifenesin 100 mg/5 10 ml PO Q6H PRN cough #237 mL 01/23/23 mL oral liquid prednisone 20 mg tablet 40 mg (2 x 20 mg) PO DAILY #10 tabs 01/23/23 Allergies Allergy/AdvReac Type Severity Reaction Status Date / Time No Known Allergies Allergy Verified 08/12/22 10:51 Review of Systems 2 Review of Systems: Constitutional : No Weight loss, No Fever, No Chills, No Fatigue, No Malaise ENT/Mouth : No sore throat, No Rhinorrhea Eyes: No Eye Pain, No Swelling, No Redness Cardiovascular : + Chest Pain, No SOB, No Dyspnea on Exertion, No Orthopnea, No Edema, No Palpitations Respiratory : No Cough, No Sputum, No Wheezing Gastrointestinal : No Nausea, No Vomiting, No Diarrhea, No Constipation, No abdominal Pain, No Hematochezia, No Melena Genitourinary : No Dysuria, No Urinary Frequency, No Hematuria, Musculoskeletal : No joint pain, No Myalgias, No Joint Swelling Skin : No Skin Lesions, No rash Neuro : No Weakness, No Numbness, No Dizziness, No Headache Psych : + Anxiety/Panic, No Depression All other systems reviewed and are negative Yes all other systems are reviewed and are negative [facility] Past Medical History Attestation statement: The following information was validated with the patient. Source: old records reviewed and nursing notes reviewed Medical History (Updated 09/11/23 @ 19:01 by JOSE Mancuso) Reactive airway disease DVT (deep venous thrombosis) Bilateral pulmonary embolism Herpes Surgical History (Updated 07/20/22 @ 10:43 by GISELLE Zamarripa) History of vein stripping History of esophagogastroduodenoscopy (EGD) H/O colonoscopy Previous back surgery Social History Social History (Updated 07/20/22 @ 10:44 by GSIELLE Zamarripa) Household Members: Spouse and Children Housing: House Alcohol intake: current Alcohol intake frequency: does not drink Patient Tobacco Use Status: Former Tobacco user Smoked in Last 30 Days: No Use of substances other than those prescribed or required for medical reasons: No Advance Directives: Yes Advance Directives on File: Yes Advance Directives Date on File: 11/02/20 Patient : No service: No Current occupational status: employed Physical Exam ED Vital Signs: Vital Signs - 24 hr 09/11/23 15:14 09/11/23 17:16 09/11/23 19:24 Temperature 97.9 F Pulse Rate 72 60 Respiratory Rate 20 18 18 Blood Pressure 193/73 H 146/69 H 152/83 H Pulse Oximetry 97 98 Oxygen Delivery Method Room Air Room Air 09/11/23 19:31 Temperature Pulse Rate Respiratory Rate Blood Pressure 135/85 Pulse Oximetry Oxygen Delivery Method BMI result Body Mass Index 40.2 vss Appearance: Alert.? Oriented X3.? No acute distress.? Head: Normocephalic, atraumatic, no step-offs or deformities Eyes: Pupils equal, round and reactive to light.? ENT: Pharynx normal.? Neck: Normal inspection.? Neck supple.? CVS: Normal heart rate and rhythm.? Pulses normal.? Respiratory: No respiratory distress.? Breath sounds normal.? Abdomen: Soft and nontender.? Skin: Skin warm and dry.? Normal skin color.? Normal skin turgor.? Extremities: No lower extremity edema.? No calf ttp. 5/5 strength to bilateral upper and lower extremities Neuro: Oriented X 3.? No motor deficit.? No sensory deficit. CN 2-12 intact normal hand employment director bilaterally. Negative Romberg and pronator drift. Normal [id number], [id number] steady tandem gait normal coordination. Course Course Course Narrative: RME performed by Audrey Ferraro PA-C. Patient is a 58 year old assigned female at presenting to the emergency department with elevated BP. Labs, imaging, and swabs ordered. Patient placed back in the waiting room pending room availability and results. Reevaluation(s) Reevaluation #1: Patient's CBC within normal limits. Chemistry unremarkable. Troponin negative, EKG nonischemic. Head CT no acute hemorrhage, mass effect or shift unremarkable head CT. Chest x-ray with no acute cardiopulmonary disease. I did discuss this case with my attending since she is complaining of chest pain and shortness of breath CTA was done, CTA is pending. At time of sign-out patient feeling well no chest pain, shortness breath, headache, vision changes or dizziness. I did discuss patient's blood pressures with my attending who tells me this is likely anxiety as her pressures have been completely normal while in the department except for the 1st blood pressure reading was elevated at triage. Time: 19:00 Medications Administered Discontinued Medications Generic Name Dose Route Start Last Admin Trade Name Freq PRN Reason Stop Dose Admin Iohexol 100 ml 09/11/23 17:00 09/11/23 17:00 Iohexol 350 Mg/Ml 100 Ml Infus..Btl IV 09/11/23 17:01 85 ml ONCE ONE Administration Medical Decision Making Medical Decision Making [facility] [place] Narrative: 1528 58-year-old female presents with complaints of hypertension at home, CP & SOB not on blood pressure medicine, family history of aneurysms. Reporting substernal chest pressure and anxiety. Physical examination benign. This is likely uncontrolled hypertension, due to lack of medications and anxiety is probably playing a role. I do not suspect acute intracranial hemorrhage, stroke, ruptured aneurysm at this time. Unlikely hypertensive urgency or emergency. No signs of increased intracranial pressure. I do not suspect acute ACS or PE Plan at this time labs, EKG, head CT and chest x-ray ordered from triage Patient fluctuant elevated blood pressure for last 2 weeks with strong family history of hypertension , recent weight gain of about 5 lb. Patient concerned blood pressure at home was 198/98. Eighty blood pressure dropped to 138/81. Will discharge patient home advised start on losartan if blood pressure is elevated higher than 140/and follow up with PCP in 2 weeks Differential Diagnosis Differential Diagnoses: The differential diagnosis associated with the presentation includes This is likely uncontrolled hypertension, due to lack of medications and anxiety is probably playing a role. I do not suspect acute intracranial hemorrhage, stroke, ruptured aneurysm at this time. Unlikely hypertensive urgency or emergency. No signs of increased intracranial pressure. I do not suspect acute ACS or PE Admission/Observation Consideration of admission/observation: Escalation of care including admission/observation considered possible Consult Healthcare Provider Management of the patient was discussed with: Oliver Filter Operator (Attending ) Lab Data [facility] [place] Lab Attestation statement: I reviewed the patient's lab results. 09/11/23 16:03 09/11/23 16:03 Labs: Lab Results 09/11/23 09/11/23 Range/Units 16:03 19:16 WBC 8.4 (4.8-10.8) X10*3/uL RBC 4.47 (4.20-5.50) X10*6/uL Hgb 13.7 (12.0-16.0) g/dl Hct 41.4 (37.0-47.0) % MCV 92.6 (80.0-98.0) fL MCH 30.6 (27.0-33.0) pg MCHC 33.1 (31.0-35.0) g/dl RDW 13.2 (11.0-16.0) % Plt Count 268 D (160-400) X10*3/uL MPV 10.3 (9.4-12.3) fL Immature Gran % (Auto) 0.4 (0.0-0.4) % Neut % (Auto) 53.7 (45-73) % Lymph % (Auto) 36.9 (20-40) % Eagle % (Auto) 7.0 (2-11) % Eos % (Auto) 1.6 (0-4) % Baso % (Auto) 0.4 (0-2) % Lymph # (Auto) 3.1 (1.2-4.9) X10*3/uL Eagle # (Auto) 0.6 (0.1-1.2) X10*3/uL Eos # (Auto) 0.1 (0.0-0.4) X10*3/uL Baso # (Auto) 0.0 (0.0-0.2) X10*3/uL Abs Immat Gran (auto) 0.03 (0.00-0.03) X10*3/uL Absolute Neuts (auto) 4.5 (2.0-8.3) x10*3/uL Absolute Nucleated RBC 0.000 (0.0-0.012) X10*3/uL Nucleated RBC % (auto) 0.0 (0.0-0.2) /100WBC PT 11.7 (11.1-13.3) SEC INR 1.0 (0.9-1.1) APTT 28.0 (26.0-36.4) SEC Sodium 140 (135-145) mmol/L Potassium 4.2 (3.3-5.1) mmol/L Chloride 107 (96-108) mmol/L Carbon Dioxide 28 (22-29) mmol/L Anion Gap 9 L (12-20) BUN 17 H (9-16) mg/dL Creatinine 0.71 (0.5-1.4) mg/dL Estim Creat Clear Calc 130.7 Estimated GFR > 60 Random Glucose 125 H (60-115) mg/dL Calcium 9.1 (8.4-10.2) mg/dL Magnesium 2.0 (1.6-2.6) mg/dL Total Bilirubin 0.4 (0.0-1.0) mg/dL AST 18 (5-31) U/L ALT 17 (0-31) U/L Alkaline Phosphatase 96 (39-117) U/L Troponin I High Sens < 2.7 (<3.5-17.0) ng/L Total Protein 6.8 (6.5-8.0) g/dL Albumin 3.9 (3.5-5.0) g/dL Urine Color Yellow Urine Appearance Clear Urine pH 6.5 (5.0-9.0) Ur Specific [place] >= 1.030 H (1.005-1.025) Urine Protein Negative (Neg-Trace) mg/dL Urine Glucose (UA) Negative (Negative) mg/dL Urine Ketones Negative (Negative) mg/dL Urine Blood Negative (Negative) Urine Nitrite Negative (Negative) Ur Leukocyte Esterase Negative (Negative) Influenza Type A (PCR) NEGATIVE (Negative) Influenza Type B (PCR) NEGATIVE (Negative) RSV RNA Qual (PCR) NEGATIVE (Negative) SARS-CoV-2 RNA (RT-PCR) NEGATIVE (Negative) Independent Interpretation I performed an independent interpretation of an: EKG (61 ventricular rate, ID normal, QRS normal, QT/QTC normal. EKG normal sinus rhythm low voltage QRS, no ST elevations or inversions concerning for acute ischemia.), Plain X-Ray and CT Scan (No acute finding) Radiology Impression Discussion of test interpretation with radiology: I have reviewed the radiologist's reading. Critical Care Time Critical Care Time Critical Care Time: No Discharge Plan Discharge Clinical Impression: Chest pain, Shortness of breath, Elevated blood pressure reading Patient Disposition: Home, Self-Care Instructions: Chest Pain (DC), Shortness of Breath (ED) Additional Instructions: Take your medications as prescribed. If you were prescribed antibiotics today, it is important that you take your medication to their entirety, do not skip any doses, do not finish them early. Follow-up with your primary care provider this week. Return to the emergency department with new or worsening symptoms. Such as fevers, chills, chest pain, shortness of breath, nausea, vomiting, dizziness, headache, vision changes, lethargy In case of emergency call 911 Please check your blood pressure Monday, Monday, Monday, write it down and discussed with your primary care provider. Your blood pressure reading was initially elevated however while in the department they were okay. CT/CT head/brain wo IV con IMPRESSION: 1. Unremarkable noncontrast brain CT. No acute hemorrhage, mass effect or shift. CT/CT angio chest PE protocol IMPRESSION: 1. No evidence of PE. 2. No evidence of aortic aneurysm. 3. Bibasilar atelectasis. VTE: negative. Prescriptions: No Action valacyclovir 1 gram tablet 0.5 tab PO DAILY cefdinir 300 mg capsule 300 mg PO BID Qty: 14 0RF codeine-guaifenesin 10-100 mg/5 mL liquid 10 ml PO Q6H PRN (Reason: cough) Qty: 237 0RF prednisone 20 mg tablet 40 mg PO DAILY Qty: 10 0RF albuterol sulfate 90 mcg/actuation HFA aerosol inhaler 2 inh inhalation Q6H PRN (Reason: shortness of breath or wheezing) 30 Days Qty: 18 12RF gabapentin 100 mg capsule 200 mg PO BEDTIME PRN peg 3350-electrolytes [Golytely] 236-22.74-6.74 -5.86 gram recon soln 240 ml PO Q10M 1 Days Qty: 4000 0RF Rx Instructions: until fecal effluent is clear; do not exceed a total volume of 2,000 mL tramadol 50 mg tablet 50 mg PO BID PRN (Reason: pain) Qty: 10 0RF Referrals: Physician,Unknown J [Primary Care Provider] - Stand Alone Forms: Work/School Release
--- NOTE | 2023-09-11 15:13 | ECG_ITS ---
Test Reason : HYPERTENSION Blood Pressure : / mmHG Vent. Rate : 061 BPM Atrial Rate : 061 BPM P-R Int : 152 ms QRS Dur : 080 ms QT Int : 422 ms P-R-T Axes : 064 007 018 degrees QTc Int : 424 ms Normal sinus rhythm Low voltage QRS Borderline ECG When compared with ECG of 23-JAN-2023 01:27, No significant change was found Referred By: Audrey Ferraro Electronically Signed By:ABRIL MARTINEZ MD
[2023-09-11 15:14] VITALS: BP 193/73; PULSE 72; RESP 20; TEMP 36.6; O2SAT 97; BMI 40.2
[2023-09-11 16:11] LABS: MANUAL DIFF FLAG NO
[2023-09-11 16:22] LABS: Basophils Percent Auto 0.4 % (0-2); Eosinophils Absolute Auto 0.1 X10*3/uL (0.0-0.4); Eosinophils Percent Auto 1.6 % (0-4); Hematocrit 41.4 % (37.0-47.0); Hemoglobin 13.7 g/dl (12.0-16.0); Imm Gran Abs Auto 0.03 X10*3/uL (0.00-0.03); Imm Gran Pct Auto 0.4 % (0.0-0.4); Lymphocytes Absolute Auto 3.1 X10*3/uL (1.2-4.9); Lymphocytes Percent Auto 36.9 % (20-40); Mean Corpuscular HGB Conc 33.1 g/dl (31.0-35.0); Mean Corpuscular Hemoglobin 30.6 pg (27.0-33.0); Mean Corpuscular Volume 92.6 fL (80.0-98.0); Mean Platelet Volume 10.3 fL (9.4-12.3); Monocytes Absolute Auto 0.6 X10*3/uL (0.1-1.2); Neutrophils Absolute Auto 4.5 x10*3/uL (2.0-8.3); Neutrophils Percent Auto 53.7 % (45-73); Platelet Count 268 X10*3/uL (160-400); Red Blood Count 4.47 X10*6/uL (4.20-5.50); Red Cell Distribution Width 13.2 % (11.0-16.0); White Blood Count 8.4 X10*3/uL (4.8-10.8)
[2023-09-11 16:31] LABS: Prothrombin Time 11.7 SEC (11.1-13.3)
[2023-09-11 16:35] LABS: Alanine Aminotransferase 17 U/L (0-31); Albumin Level 3.9 g/dL (3.5-5.0); Alkaline Phosphatase 96 U/L (39-117); Anion Gap 9 (12-20); Aspartate Amino Transferase 18 U/L (5-31); Bilirubin Total 0.4 mg/dL (0.0-1.0); Blood Urea Nitrogen 17 mg/dL (9-16); Calcium 9.1 mg/dL (8.4-10.2); Carbon Dioxide 28 mmol/L (22-29); Chloride 107 mmol/L (96-108); Creatinine Clr Calc Pharmacy 130.7; Estimated Glomerular Filt Rate > 60; Glucose Random 125 mg/dL (60-115); Potassium 4.2 mmol/L (3.3-5.1); Sodium 140 mmol/L (135-145); Total Protein 6.8 g/dL (6.5-8.0)
[2023-09-11 16:38] LABS: Troponin-I High Sensitivity < 2.7 ng/L (<3.5-17.0)
[2023-09-11 16:51] LABS: Influenza A PCR NEGATIVE (Negative); Influenza B PCR NEGATIVE (Negative); Resp Syncy Virus RNA Qual PCR NEGATIVE (Negative); SARS COV2 PCR INHOUSE NEGATIVE (Negative)
[2023-09-11] MEDS: iohexoL 350 MG/ML 100 ML INFUS..BTL IV (17:00)
[2023-09-11 17:16] VITALS: BP 146/69; PULSE 60; RESP 18; O2SAT 98
--- NOTE | 2023-09-11 19:20 | PC.NURSE ---
pt a&ox4, hypertensive, other vss, urine sample obtained. no new orders at this time.
[2023-09-11 19:24] VITALS: BP 152/83; RESP 18
[2023-09-11 19:29] LABS: Appearance Urine Clear; Color Urine Yellow; Glucose Urine UA Negative (Negative); Leukocyte Esterase Urine Negative (Negative); Nitrite Urine Negative (Negative); PH 6.5 (5.0-9.0); Specific Gravity - Urine >= 1.030 (1.005-1.025); Urine Blood Negative (Negative); Urine Ketones Negative (Negative); Urine Protein Negative (Neg-Trace)
[2023-09-11 19:31] VITALS: BP 135/85
--- NOTE | 2023-09-11 19:56 | PC.NURSE ---
Reviewed discharge instructions with pt, pt verbalized understanding, no sign of distress upon discharge, notified RIANA Nicole.
== END 2023-09-11 19:57 | disposition home or self-care (01) ==
PROVIDERS: Physician Assistant Medical; Emergency Provider Student in an Organized Health Care Education/Training Program
DX: R07.9 Chest pain, unspecified (principal); R06.02 Shortness of breath; R03.0 Elevated blood-pressure reading, without diagnosis of hypertension; Z86.718 Personal history of other venous thrombosis and embolism; Z87.891 Personal history of nicotine dependence; Z20.822 Contact with and (suspected) exposure to COVID-19; Z20.828 Contact with and (suspected) exposure to other viral communicable diseases
CPT/HCPCS: 0241U; 36415; 70450; 71046; 71275; 80053; 81003; 83735; 84484; 85025; 85610; 85730; 93005; 99284; Q9967

== ENCOUNTER 2023-09-12 10:15 | Outpatient (REF) | payer BC, SELFPAY ==
[2023-09-12 12:38] LABS: Estimated Average Glucose 128 mg/dL; Hemoglobin A1c % 6.1 % (<6.0)
[2023-09-12 12:44] LABS: Anion Gap 8 (12-20); Blood Urea Nitrogen 12 mg/dL (9-16); Calcium 9.6 mg/dL (8.4-10.2); Carbon Dioxide 31 mmol/L (22-29); Chloride 104 mmol/L (96-108); Estimated Glomerular Filt Rate > 60; Glucose Random 109 mg/dL (60-115); Potassium 4.4 mmol/L (3.3-5.1); Sodium 139 mmol/L (135-145)
== END 2023-09-12 10:16 | disposition home or self-care (01) ==
LOC: HO.LAB 10:15
PROVIDERS: PCP Nurse Practitioner; Visit Provider Nurse Practitioner
DX: M25.552 Pain in left hip (principal); E66.01 Morbid (severe) obesity due to excess calories; R73.03 Prediabetes
CPT/HCPCS: 36415; 80048; 83036

== ENCOUNTER 2023-10-30 11:00 | Outpatient (RCR) | payer BC, SELFPAY ==
[2023-10-11 11:05] VITALS: BP 141/68; PULSE 68; O2SAT 96
== END 2023-12-14 07:23 | disposition home or self-care (01) ==
LOC: HO.PT 11:00
PROVIDERS: PCP Nurse Practitioner; Visit Provider Nurse Practitioner
DX: M25.552 Pain in left hip (principal)
CPT/HCPCS: 97110; 97162; 97530

== ENCOUNTER 2024-03-14 10:05 | Outpatient (AMB) | payer BC, SELFPAY ==
--- NOTE | 2024-03-14 10:06 | MHC.OFFVIS ---
Vital Signs 03/14/24 10:16 Height 5 ft 11 in Weight 273 lb 6 oz BMI 38.1 BP 140/86 H Blood Pressure Location Lt brachial Position Sitting Respiration 18 Pulse 69 Pulse Source Pulse Oximeter Pulse Oximetry (%) 96 Oxygen Delivery Method Room Air Intake Visit Reasons: low back pain Intake Note: Patient comes in for low back pain. Reports pain 01/30. Allergies No Known Allergies Allergy (Verified 03/14/24 10:17) HPI Comments Details: Karin is very pleasant 58 years old female who is in my office complaining on pain in the lower back mostly in the right side with radiation into the right lower extremity as well as pain radiating from that side into the left lower extremity. She was under care of Dr. Rodriguez in this office, she was sent to physical therapy, she received therapeutic intra-articular L3-L4 steroid injection which resulted in very significant prolonged pain relief. In the past back in [place] she was operated twice on her L4-5 interspace with laminotomy and partial diskectomy. She reported that 1st surgery did not help her however 2nd surgery was very helpful for her pain relief. Her pain relief lasted about 20 years. Unfortunately recently the patient needed to assist in resuscitation of the patient by doing a Heimlich maneuver, she reported that after that her pain became stronger. She reports that on MRI which was done 2 years ago she had L3-L4 protrusion of the disc. We discussed situation at hands. I recommended her to go for the consult with neurosurgeon Dr. Howe, in the order to neurosurgeon to see this patient she needs to go for the fresh MRI. I will schedule her for the MRI. I recommended her to give us a call and schedule the follow-up appointment as soon as she will step out of the MRI. 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 Patient Tobacco Use Status: Former Tobacco user Advance Directives Date on File: 11/02/20 service: No Current occupational status: employed Review of Systems Const All systems reviewed & are unremarkable except as noted in HPI and below ENT Reports Normal hearing present Neuro Reports Normal hearing present, Denies Abnormal speech present, Denies confusion and Denies Sensory deficit (Neuro) Psych Denies confusion Physical Exam Vital Signs: Last Vital Signs Pulse 69 03/14/24 10:16 Resp 18 03/14/24 10:16 BP 140/86 H 03/14/24 10:16 Pulse Ox 96 03/14/24 10:16 Oxygen Delivery Method Room Air 03/14/24 10:16 BMI result Body Mass Index 38.1 Const General: no acute distress; No confusion Orientation/consciousness: patient oriented x3 and No confusion Eyes General: appearance normal, both eyes and all related structures Pupils: Equal, round and reactive pupils present EOM: EOMs intact bilaterally Neck Neck: Yes full ROM Chest Chest palpation & inspection: normal inspection of the chest Resp Effort & Inspection: normal respiratory effort, able to speak in complete sentences, normal respiratory pattern, no audible wheezes and no cough Cardio Jugular venous distension: no JVD GI Inspection: Yes normal to inspection Back/Spine/Pelvis Other: SLR positive on the right. Magdi test is negative on the right. Lateral and medial rotation of the hip is negative on the right. Severe tenderness on palpation in the projection of the right trochanter. No tenderness on palpation in the projection of the lumbar spine. Neuro General: patient oriented x3, gait normal and No confusion Cranial nerves: Yes CN's II-XII intact bilaterally, Yes Equal, round and reactive pupils present, Yes Normal hearing present and Yes Ability to bilaterally elevate shoulders present Speech: No Abnormal speech present Gait exam (Neuro): Normal gait present Motor exam (neuro): 5/5 motor strength present throughout Sensory Exam: No Sensory deficit (Neuro) Extrem General: No pedal edema Psych Speech and movement: Normal speech and movement present Affect: normal affect Attitude: cooperative Thought process: Normal thought process present Thought content: Normal thought content present Insight: Good insight present (Psych) Judgement: Good judgement present (Psych) Results Reviewed Results Reviewed: Lumbar Spine MRI (06/16/22): FINDINGS: VERTEBRAL BODIES AND PARASPINAL STRUCTURES: Severe disc space narrowing with chronic fatty marrow endplate changes evident at the L3-L4 and L4-L5 levels. Mild anterolisthesis noted at the L3-L4 level. There are no compression fractures. The paraspinal soft tissues are unremarkable. Chronic postlaminectomy changes visible at the L3-L4 and L4-L5 levels. CONUS MEDULLARIS AND CAUDA EQUINE: The distal cord, conus tip, and cauda equina nerve roots are normal. SPINAL LEVELS: L1-L2: No disc pathology. Mild right-sided facet arthropathy. No central canal stenosis or foraminal narrowing. L2-L3: Mild anterolisthesis and diffuse disc bulge with moderate facet arthropathy. Mild central canal stenosis and mild left foraminal narrowing. L3-L4: Severe loss of disc height with a mild disc bulge and endplate spurring. Hypertrophic facet arthropathy and chronic right-sided postlaminectomy changes. Mild central canal stenosis. Moderate bilateral foraminal narrowing with facet spurring mildly distorting the exiting left L3 nerve root. L4-L5: Severe loss of disc height and mild disc bulge with hypertrophic facet arthropathy and chronic left-sided postlaminectomy changes. Slight narrowing of the central canal. A 2.5 mm synovial cyst protrudes from the anteromedial left facet joint into the subarticular zone with impingement of the left L5 nerve root, also due to bony spurring as well. Severe left and moderate right foraminal narrowing. L5-S1: Left subarticular zone disc protrusion in conjunction with facet arthropathy distorts the left S1 nerve root. No significant central canal stenosis. Moderate bilateral foraminal narrowing. Assessment & Plan Assessment & Plan (1) Lumbar radiculopathy: Code(s): M54.16 - Radiculopathy, lumbar region Category: Medical (2) Lumbar post-laminectomy syndrome: Code(s): M96.1 - Postlaminectomy syndrome, not elsewhere classified Category: Medical Plan The patient is willing to go for neurosurgery consult. In the order to attend this consult we need to send her for urgent MRI. I will schedule patient for urgent MRI. I will schedule her for Dr. Marie consult. She will come back and schedule appointment with me after the MRI and Neurosurgery consult. Orders: Orders MR lumbar spine wo/w con Today M54.16 - Radiculopathy, lumbar region, M96.1 - Postlaminectomy syndrome, not elsewhere classified Referrals Neurosurgery Referral M54.16 - Radiculopathy, lumbar region, M96.1 - Postlaminectomy syndrome, not elsewhere classified Patient Instructions: I here by testify that I spent 38 minutes in conversation with this patient as well as planning her care and organizing this note. Coding Level of Care Code Est Pt Level 4 (82124) Diagnoses Lumbar radiculopathy M54.16 Lumbar post-laminectomy syndrome M96.1
[2024-03-14 10:16] VITALS: BP 140/86; PULSE 69; RESP 18; O2SAT 96; BMI 38.1
== END 2024-03-14 10:49 | disposition home or self-care (01) ==
PROVIDERS: PCP Nurse Practitioner; Visit Provider Anesthesiology
DX: M54.16 Radiculopathy, lumbar region (principal); M96.1 Postlaminectomy syndrome, not elsewhere classified
CPT/HCPCS: 99214

== ENCOUNTER → 2024-03-14 10:05 | Outpatient (BNVA) | payer BC, SELFPAY | PROVIDERS: PCP Nurse Practitioner; Visit Provider Anesthesiology ==

== ENCOUNTER 2024-03-22 13:36 | Outpatient (REF) | payer BC, SELFPAY | END 2024-03-22 13:37 | disposition home or self-care (01) | LOC: HO.MRI 13:36 | PROVIDERS: PCP Nurse Practitioner; Visit Provider Anesthesiology | DX: Z13.89 Encounter for screening for other disorder (principal) ==

== ENCOUNTER 2024-04-10 08:57 | Outpatient (AMB) | payer BC, SELFPAY ==
--- NOTE | 2024-04-10 09:02 | A.OFFVIS_ITS ---
Vital Signs 04/10/24 09:08 Height 5 ft 11 in Weight 273 lb BMI 38.1 BP 140/84 H Blood Pressure Location Lt radial Position Sitting Respiration 16 Pulse 86 Pulse Source Pulse Oximeter Pulse Oximetry (%) 91 L Oxygen Delivery Method Room Air Intake Visit Reasons: Discuss MRI Results Intake Note: Patient comes in to discuss MRI results. Reports pain 05/01. Allergies No Known Allergies Allergy (Verified 04/10/24 09:10) HPI Comments Details: Karin is back in my office to discuss possibility of further treatment. I sent her to the MRI and results of the MRI dictated as below. On the MRI she is suffering from a ligamentum flavum thickening and facet arthropathy which in concert at the level L3-L4 and L4-5 on the right as well as on the left exerts some pressure on of the passing and exiting L4 nerve root. I offered her transforaminal epidural steroid injection but she is cited very dramatic and painful experience with previous injection with Dr. Rodriguez. She also was referred to a neurosurgeon Dr. Howe her appointment as scheduled. Possibility of treating her pain with chronic opioid therapy was discussed. She reports that she is feeling obtunded on chronic opioids. She is negative about it too. Then I offered her treatment of her pain with spinal cord stimulator [employer], [employer] brochure was given to the patient. The patient will make a decision in come back after the visit to neurosurgery. very pleasant 58 years old female who is in my office complaining on pain in the lower back mostly in the right side with radiation into the right lower extremity as well as pain radiating from that side into the left lower extremity. She was under care of Dr. Rodriguez in this office, she was sent to physical therapy, she received therapeutic intra-articular L3-L4 steroid injection which resulted in very significant prolonged pain relief. In the past back in [place] she was operated twice on her L4-5 interspace with laminotomy and partial diskectomy. She reported that 1st surgery did not help her however 2nd surgery was very helpful for her pain relief. Her pain relief lasted about 20 years. Unfortunately recently the patient needed to assist in resuscitation of the patient by doing a Heimlich maneuver, she reported that after that her pain became stronger. She reports that on MRI which was done 2 years ago she had L3-L4 protrusion of the disc. We discussed situation at hands. I recommended her to go for the consult with neurosurgeon Dr. Howe, in the order to neurosurgeon to see this patient she needs to go for the fresh MRI. I will schedule her for the MRI. I recommended her to give us a call and schedule the follow-up appointment as soon as she will step out of the MRI. 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 Patient Tobacco Use Status: Former Tobacco user Advance Directives Date on File: 11/02/20 service: No Current occupational status: employed Review of Systems Const All systems reviewed & are unremarkable except as noted in HPI and below ENT Reports Normal hearing present Neuro Reports Normal hearing present, Denies Abnormal speech present, Denies confusion and Denies Sensory deficit (Neuro) Psych Denies confusion Physical Exam Vital Signs: Last Vital Signs Pulse 86 04/10/24 09:08 Resp 16 04/10/24 09:08 BP 140/84 H 04/10/24 09:08 Pulse Ox 91 L 04/10/24 09:08 Oxygen Delivery Method Room Air 04/10/24 09:08 BMI result Body Mass Index 38.1 Const General: no acute distress; No confusion Orientation/consciousness: patient oriented x3 and No confusion Eyes General: appearance normal, both eyes and all related structures Pupils: Equal, round and reactive pupils present EOM: EOMs intact bilaterally Neck Neck: Yes full ROM Chest Chest palpation & inspection: normal inspection of the chest Resp Effort & Inspection: normal respiratory effort, able to speak in complete sentences, normal respiratory pattern, no audible wheezes and no cough Cardio Jugular venous distension: no JVD GI Inspection: Yes normal to inspection Back/Spine/Pelvis Other: SLR positive on the right. Magdi test is negative on the right. Lateral and medial rotation of the hip is negative on the right. Severe tenderness on palpation in the projection of the right trochanter. No tenderness on palpation in the projection of the lumbar spine. Neuro General: patient oriented x3, gait normal and No confusion Cranial nerves: Yes CN's II-XII intact bilaterally, Yes Equal, round and reactive pupils present, Yes Normal hearing present and Yes Ability to bilater ally elevate shoulders present Speech: No Abnormal speech present Gait exam (Neuro): Normal gait present Motor exam (neuro): 5/5 motor strength present throughout Sensory Exam: No Sensory deficit (Neuro) Extrem General: No pedal edema Psych Speech and movement: Normal speech and movement present Affect: normal affect Attitude: cooperative Thought process: Normal thought process present Thought content: Normal thought content present Insight: Good insight present (Psych) Judgement: Good judgement present (Psych) Results Reviewed Results Reviewed: MRI lumbar spine with and without contrast 04/07/2024. Findings: Vertebral heights are well-maintained. Bone marrow signal is within normal limits. No suspicious osseous is identified. Conus medullaris is unremarkable. No areas of abnormal enhancement is identified. Paraspinal soft tissues and visualized portion of the abdomen and pelvis are unremarkable. T12-L1: Mild broad-based disc bulge without clinically significant central canal or neural foraminal stenosis. L1-L2: No disc herniation or protrusion no canal stenosis or foraminal stenosis. L2-L3 5 mm anterolisthesis. Broad-based disc bulge with ligamentum flavum hypertrophy and bilateral joint hypertrophy. Findings in combination creates mild central canal stenosis. No neural foraminal stenosis. L3-L4 clinical significant intervertebral disc space narrowing. Broad-based disc bulge with ligamentum flavum hypertrophy and joint hypertrophy which in combination creates mild central canal stenosis. No exiting nerve root compression found. Bilateral disc osteophyte complex narrowing the right and left neural foramina without nerve root encroachment. There is left-sided subarticular recess stenosis impinging upon the descending right L4 nerve root. L4-5: Intervertebral disc space narrowing. Broad-based disc bulge, ligamentum flavum hypertrophy, joint hypertrophy in combination creates mild central canal stenosis. Prominent disc osteophyte complex narrowing the right and left neural foramina. Right worse than left encroachment upon the exiting left L4 nerve root. The patient is status post right L4 laminectomy. No enhancing post surgical abnormalities identified. Bilateral subarticular recess stenosis impinging upon the right and left descending L5 nerve roots. L5-S1: Broad-based disc bulge with ligamentum flavum hypertrophy and bilateral joint hypertrophy causing mild central canal stenosis. Bilateral disc osteophyte complex narrowing of the right eye left neural foramina without nerve root encroachment. Left-sided subarticular recess stenosis impinging upon descending left S1 nerve root. Assessment & Plan Assessment & Plan (1) Lumbar radiculopathy: Code(s): M54.16 - Radiculopathy, lumbar region Category: Medical (2) Lumbar post-laminectomy syndrome: Code(s): M96.1 - Postlaminectomy syndrome, not elsewhere classified Category: Medical (3) Sciatica associated with disorder of lumbar spine: Code(s): M53.86 - Other specified dorsopathies, lumbar region Category: Medical (4) Chronic pain syndrome: Code(s): G89.4 - Chronic pain syndrome Category: Medical Plan Multiple options were discussed with the patient. The patient was offered chronic opioid therapy to help her pain. She reports she is obtunded when she takes opioids. Spinal cord stimulator was discussed. Brochure [employer] was given to the patient. Patient will think about it. She reports epidural steroid injections (which would be indicated for radiculopathy with MRI dictated as above) were very dramatic experience for her last time she went for the procedure. I asked her to think about it. She is scheduled for appointment with office of Dr. Howe. However in my opinion neurosurgery with her MRI reports and her symptoms unlikely would be indicated. So she would need to decide and think on options she was given. She will schedule an appointment and give us her conclusion about her conditions and the way we would treat them. Patient Instructions: I here by testify that I spent 38 minutes in conversation with this patient as well as planning her care evaluating her prior images and prior diagnostic records, evaluating prior diagnostic and therapeutic injections and organizing her notes. Coding Level of Care Code Est Pt Level 4 (82118) Diagnoses Lumbar radiculopathy M54.16 Lumbar post-laminectomy syndrome M96.1 Sciatica associated with disorder of lumbar spine M53.86 Chronic pain syndrome G89.4
[2024-04-10 09:08] VITALS: BP 140/84; PULSE 86; RESP 16; O2SAT 91; BMI 38.1
== END 2024-04-10 09:28 | disposition home or self-care (01) ==
PROVIDERS: PCP Nurse Practitioner; Visit Provider Anesthesiology
DX: M54.16 Radiculopathy, lumbar region (principal); M96.1 Postlaminectomy syndrome, not elsewhere classified; M53.86 Other specified dorsopathies, lumbar region; G89.4 Chronic pain syndrome
CPT/HCPCS: 99214

== ENCOUNTER → 2024-04-10 08:57 | Outpatient (BNVA) | payer BC, SELFPAY | PROVIDERS: PCP Nurse Practitioner; Visit Provider Anesthesiology ==

== ENCOUNTER 2024-05-10 14:03 | Outpatient (REF) | payer BC, SELFPAY ==
--- NOTE | ~2024-05-10 | XR_ITS ---
EXAMINATION: XR LUMBOSACRAL SPINE WITH OBLIQUES CLINICAL INFORMATION: Postlaminectomy syndrome. COMPARISON: Most recent lumbar spine MRI dated 06/16/2022. TECHNIQUE: AP, lateral, flexion, and extension views of the lumbosacral spine. FINDINGS: The lumbar lordosis is maintained. Grade 1 anterolisthesis of L2 on L3, unchanged. No significant subluxation with flexion or extension. No acute fracture. No loss of vertebral body height. Multilevel loss of intervertebral disc height with endplate degenerative changes at bilateral facet arthropathy, slightly progressed when compared to the prior MRI. XR/XR lumbar spine 4V min IMPRESSION: 1. Grade 1 anterolisthesis of L2 on L3, unchanged. No significant subluxation with flexion or extension. 2. Multilevel degenerative disc disease and bilateral facet arthropathy, slightly progressed.
== END 2024-05-10 14:04 | disposition home or self-care (01) ==
LOC: HO.HOSX 14:03
PROVIDERS: PCP Nurse Practitioner; Visit Provider Neurological Surgery
DX: M96.1 Postlaminectomy syndrome, not elsewhere classified (principal); M54.16 Radiculopathy, lumbar region
CPT/HCPCS: 72110

== ENCOUNTER 2024-05-10 14:03 | Outpatient (AMB) | payer BC, SELFPAY ==
--- NOTE | 2024-05-10 14:14 | A.SPINEOV_ITS ---
Intake Visit Reasons: lumbar radiculopathy Intake Note: Ms. Mancuso is here today c/o low back pain. MRI done @ [facility]. [employer]ologist Required: No Allergies No Known Allergies Allergy (Verified 04/10/24 09:10) Assessment & Plan Assessment & Plan (1) Lumbar post-laminectomy syndrome: Code(s): M96.1 - Postlaminectomy syndrome, not elsewhere classified Category: Medical Plan: Dear colleague Thank you for referring Cindy Mancuso to the office today with a chief complaint of chronic back pain and predominantly right lumbar radiculopathy. HPI: This 59-year-old female had an L4-5 laminectomy diskectomy done in 1987 and an L4-5 diskectomy 1993. She was doing very well until 3 years ago where there was an incident that caused back pain for 10 days. She underwent physical therapy to get her moving. The back pain continues to bother her in his located in the low lumbar spine. More recently her right hip and right knee are bothering her the pain radiates from the right hip to the ventral side of her thigh into her knee and sometimes down to the [place]. The pain is worse with walking and driving in the car. She can sleep on her sides without difficulty. Intermittently she has left foot numbness predominantly on the top of her left foot. Last June she had facet blocks down and the left L3 nerve block without success. She is terrified for new injections as the needle touched her nerve. The following conservative treatment options were tried without success antiinflammatories, tylenol, physical therapy, swimming and cortisone shots PMH: Diabetes, hypertension, obesity Medications: Spironolactone, losartan, Ozempic Allergies: NKDA Social history: She is . 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 Nonsmoker. Physical Exam: Pleasant female. SI joint provocative tests are negative. Straight leg raise is negative. Hip rotation is normal. No neurological deficits for motor sensation or reflexes Radiological Studies: MRI done at [facility] on April 05, 2024 shows a nearly collapsed discs at the levels L3-4 and L4-5. There is moderate to severe L3-4 spinal stenosis and bilateral L3 and L4 foraminal stenosis. An x- ray of the lumbar spine show no signs of instability. Impression/Plan: This patient is suffering from chronic back pain and a right lumbar radiculopathy/neurogenic claudication. The severe collapsed disc are most likely associated with the previous surgeries. It would be helpful if we can determine the chronolgy of the disc collapse. Therefore asked her if she can locate older MRIs for comparison. I also think it would be beneficial to do a right diagnostic L4 nerve block . She will bring possible older studies for me to review. She will also call if she wants to undergo a right diagnostic L4 nerve block. We will refer to to do that. Thank you for allowing me to participate in your patients care. total time spent was 50 minutes in counseling ,coordination of plan, personal review of imaging, surgical decision making and subsequent plan Magnus Howe MD, PhD Spine Fellowship Trained Neurosurgeon Director, [facility] (2) Lumbar radiculopathy: Code(s): M54.16 - Radiculopathy, lumbar region Category: Medical Plan s Orders: Orders XR lumbar spine 4V min Today M54.16 - Radiculopathy, lumbar region, M96.1 - Postlaminectomy syndrome, not elsewhere classified Coding Level of Care Code New Pt Level 4 (24854) Diagnoses Lumbar post-laminectomy syndrome M96.1 Lumbar radiculopathy M54.16
== END 2024-05-10 15:47 | disposition home or self-care (01) ==
PROVIDERS: PCP Nurse Practitioner; Referring Provider Anesthesiology; Visit Provider Neurological Surgery
DX: M96.1 Postlaminectomy syndrome, not elsewhere classified (principal); M54.16 Radiculopathy, lumbar region
CPT/HCPCS: 99204